=== PATIENT | male | born 1980 | race Caucasian/White ===

== ENCOUNTER 2021-05-15 19:26 | Inpatient (IN) ==
[2021-05-15] MEDS ORDERED: IOPAMIDOL 100 ML BOTTLE IV ONE (19:27)
[2021-05-15] MEDS ORDERED: ONDANSETRON 4 MG/2 ML VIAL IV ONE (19:37)
[2021-05-15] MEDS ORDERED: 0.9 % SODIUM CHLORIDE 1,000 ML IV ONE ×2 (19:37→20:26)
[2021-05-15] MEDS ORDERED: HYDROmorphone 0.5 MG/0.5 ML SYRINGE IV ONE ×2 (19:39→21:23)
[2021-05-15] MEDS ORDERED: cefTRIAXone 1 GM VIAL IV ONE (19:42)
--- NOTE | 2021-05-15 19:42 | Emergency Department Note ---
HPI General Chief complaint: Abdominal Pain Stated complaint: Abdominal Pain Time Seen by Provider: 05/15/21 19:28 Mode of arrival: ambulatory Limitations: no limitations History of Present Illness HPI Narrative: Narrative: Patient is a 40-year-old male who presents by ambulance with accompanied by his sister and mother with a chief complaint of abdominal pain. The family also states that he has a fever. The patient reports he is otherwise healthy and up-to-date on all of his immunizations. The patient also endorses nausea and abdominal pain. The family states that he was seen at [facility] yesterday. Related Data Home Medications Medication Instructions Recorded Confirmed naproxen sodium 220 mg PO PRN PRN 01/23/17 01/26/17 Previous Rx's Medication Instructions Recorded cyclobenzaprine 10 mg PO TID PRN #30 tab 01/23/17 etodolac 400 mg PO BIDP PRN #20 tab 01/23/17 Allergies Allergy/AdvReac Type Severity Reaction Status Date / Time No Known Drug Allergies Allergy Verified 05/15/21 19:28 Review of Systems ROS ROS Narrative: Narrative: All systems ED: reviewed and negative except as stated. [facility] Narrative Patient History Narrative: Narrative: Medical/Surgical/Family History All Active Problems (Updated 05/15/21 @ 23:06 by Christofer Akbar DO) Dental abscess (Acute) Strain of lumbar region (Acute) Acute appendicitis (Acute) Social History Smoking Status: Never smoker Exam Narrative Narrative: Narrative: General Limitations: no limitations General appearance: Present alert Head Head: Present atraumatic and normocephalic Eye Eye: Present normal appearance, PERRL and EOMI ENT ENT: Present normal exam, normal oropharynx and mucous membranes moist Neck Neck: Present normal inspection, full ROM and trachea midline Chest Chest: Present normal inspection and symmetric chest wall rise Respiratory Respiratory: Present normal lung sounds bilaterally Cardiovascular Cardiovascular: Present regular rate and normal rhythm Adbominal Abdominal: Present tenderness, guarding, rebound and heel tap sign Extremities Extremities: Present normal inspection and full ROM; Absent tenderness Back Back: Present normal inspection and full ROM; Absent tenderness Neurological Neurological: Present alert, oriented X3, CN II-XII intact, normal gait, motor sensory deficit and reflexes normal Psychiatric Psychiatric: Present normal affect Skin Skin: Present warm (WNL); Absent rash Course Course Course Narrative: I reviewed the medical records from [facility] yesterday that did show a leukocytosis of 16,000. There is also report that shows a negative CT angiogram of the abdomen and pelvis. Today's work-up is consistent with acute appendicitis. I did speak with the general surgeon Dr. Zaragoza who has graciously agreed to admit this patient. Basic facilitated admission orders were placed. Patient will be kept n.p.o., treated with IV fluids, antiemetics and analgesics as well as IV antibiotics. I had a lengthy discussion with the patient as well as the patient's mother and sister who are all agreeable to admission to the hospital for appendicitis for evaluation by the general surgeon Dr. Zaragoza. Vital Signs Vital signs: Vital Signs Temperature 100.6 F H 05/15/21 19:27 Pulse Rate 110 H 05/15/21 19:27 Respiratory Rate 18 05/15/21 19:27 Blood Pressure 124/78 05/15/21 19:27 Pulse Oximetry (%) 92 05/15/21 19:27 Temperature 100.5 F H 05/15/21 20:16 Pulse Rate 79 05/16/21 00:17 Respiratory Rate 18 05/15/21 19:27 Blood Pressure 101/63 05/16/21 00:17 Pulse Oximetry (%) 94 05/16/21 00:17 [facility] Narrative Medical decision making narrative: Narrative: history and exam are concerning for appendicitis. Work up is consistent with appendicitis. Lab Data Result diagrams: 05/15/21 20:00 05/15/21 20:00 Labs: Lab Results 05/15/21 05/15/21 05/15/21 Range/Units 20:00 20:00 20:00 WBC 11.5 H (4.5-11.0) K/mcL RBC 4.69 (4.63-6.08) M/mcL Hgb 14.1 (13.7-17.5) g/dL Hct 41.8 (40.1-51.0) % POC Hct 42 (41-55) % MCV 89.1 (80.0-100.0) fL MCH 30.1 (26.0-34.0) pg MCHC 33.7 (31.0-36.0) g/dL RDW 12.8 (11.5-14.5) % Plt Count 266 (140-440) K/mcL MPV 9.1 (7.4-10.4) fL Neut % (Auto) 93.4 H (38.0-78.0) % Lymph % (Auto) 4.0 L (15.5-49.0) % Garrard % (Auto) 2.1 (1.0-12.0) % Eos % (Auto) 0.2 (0.0-7.0) % Baso % (Auto) 0.3 (0.0-2.0) % Lymph # (Auto) 0.46 L (1.50-4.80) K/mcL Garrard # (Auto) 0.24 (0.10-0.90) K/mcL Eos # (Auto) 0.02 (0.00-0.70) K/mcL Baso # (Auto) 0.03 (0.00-0.30) K/mcL Absolute Neutrophils 10.74 H (1.80-8.00) K/mcL PT 14.3 (11.9-14.5) sec INR 1.1 (0.9-1.1) VBG Lactic Acid (0.5-2.0) mmol/L POC Sodium 135 (133-145) mEq/L Sodium 128 L (133-145) mmol/L POC Potassium 3.7 (3.3-5.1) mEql/L Potassium 3.6 (3.3-5.1) mmol/L POC Chloride 98 (96-108) mEq/L Chloride 94 L (96-108) mmol/L Carbon Dioxide 22 (22-30) mmol/L POC Total CO2 23 (22-30) mmol/L Anion Gap 12.0 (8.0-16.0) POC BUN 10 (6-20) mg/dL BUN 10 (6-20) mg/dL Creatinine 0.7 (0.7-1.2) mg/dL POC Creatinine 0.7 (0.6-1.2) mg/dL GFR Calculation 118 Glucose 98 (70-105) mg/dL POC Glucose 100 (70-105) mg/dL Calcium 9.0 (8.6-10.4) mg/dL POC WB Ioniz Calcium 1.16 (1.16-1.32) mmEq/L Total Bilirubin 0.6 (0.1-1.0) mg/dL AST 19 (<40) U/L ALT 23 (<40) U/L Alkaline Phosphatase 99 (39-117) U/L Troponin T (<0.03) ng/mL NT-Pro-B Natriuret Pep (<125.0) pg/mL Total Protein 6.5 (5.9-8.4) gm/dL Albumin 3.7 (3.2-5.2) gm/dL Globulin 2.8 (2.2-3.7) gm/dL Albumin/Globulin Ratio 1.3 (1.0-2.3) Amylase 53 (28-100) U/L Lipase 20 (7-60) U/L Ethyl Alcohol (<0.010) gm/dL 05/15/21 05/15/21 05/15/21 Range/Units 20:00 20:00 20:00 WBC (4.5-11.0) K/mcL RBC (4.63-6.08) M/mcL Hgb (13.7-17.5) g/dL Hct (40.1-51.0) % POC Hct (41-55) % MCV (80.0-100.0) fL MCH (26.0-34.0) pg MCHC (31.0-36.0) g/dL RDW (11.5-14.5) % Plt Count (140-440) K/mcL MPV (7.4-10.4) fL Neut % (Auto) (38.0-78.0) % Lymph % (Auto) (15.5-49.0) % Garrard % (Auto) (1.0-12.0) % Eos % (Auto) (0.0-7.0) % Baso % (Auto) (0.0-2.0) % Lymph # (Auto) (1.50-4.80) K/mcL Garrard # (Auto) (0.10-0.90) K/mcL Eos # (Auto) (0.00-0.70) K/mcL Baso # (Auto) (0.00-0.30) K/mcL Absolute Neutrophils (1.80-8.00) K/mcL PT (11.9-14.5) sec INR (0.9-1.1) VBG Lactic Acid < 0.2 L (0.5-2.0) mmol/L POC Sodium (133-145) mEq/L Sodium (133-145) mmol/L POC Potassium (3.3-5.1) mEql/L Potassium (3.3-5.1) mmol/L POC Chloride (96-108) mEq/L Chloride (96-108) mmol/L Carbon Dioxide (22-30) mmol/L POC Total CO2 (22-30) mmol/L Anion Gap (8.0-16.0) POC BUN (6-20) mg/dL BUN (6-20) mg/dL Creatinine (0.7-1.2) mg/dL POC Creatinine (0.6-1.2) mg/dL GFR Calculation Glucose (70-105) mg/dL POC Glucose (70-105) mg/dL Calcium (8.6-10.4) mg/dL POC WB Ioniz Calcium (1.16-1.32) mmEq/L Total Bilirubin (0.1-1.0) mg/dL AST (<40) U/L ALT (<40) U/L Alkaline Phosphatase (39-117) U/L Troponin T < 0.01 (<0.03) ng/mL NT-Pro-B Natriuret Pep 198.2 H (<125.0) pg/mL Total Protein (5.9-8.4) gm/dL Albumin (3.2-5.2) gm/dL Globulin (2.2-3.7) gm/dL Albumin/Globulin Ratio (1.0-2.3) Amylase (28-100) U/L Lipase (7-60) U/L Ethyl Alcohol (<0.010) gm/dL 05/15/21 Range/Units 20:00 WBC (4.5-11.0) K/mcL RBC (4.63-6.08) M/mcL Hgb (13.7-17.5) g/dL Hct (40.1-51.0) % POC Hct (41-55) % MCV (80.0-100.0) fL MCH (26.0-34.0) pg MCHC (31.0-36.0) g/dL RDW (11.5-14.5) % Plt Count (140-440) K/mcL MPV (7.4-10.4) fL Neut % (Auto) (38.0-78.0) % Lymph % (Auto) (15.5-49.0) % Garrard % (Auto) (1.0-12.0) % Eos % (Auto) (0.0-7.0) % Baso % (Auto) (0.0-2.0) % Lymph # (Auto) (1.50-4.80) K/mcL Garrard # (Auto) (0.10-0.90) K/mcL Eos # (Auto) (0.00-0.70) K/mcL Baso # (Auto) (0.00-0.30) K/mcL Absolute Neutrophils (1.80-8.00) K/mcL PT (11.9-14.5) sec INR (0.9-1.1) VBG Lactic Acid (0.5-2.0) mmol/L POC Sodium (133-145) mEq/L Sodium (133-145) mmol/L POC Potassium (3.3-5.1) mEql/L Potassium (3.3-5.1) mmol/L POC Chloride (96-108) mEq/L Chloride (96-108) mmol/L Carbon Dioxide (22-30) mmol/L POC Total CO2 (22-30) mmol/L Anion Gap (8.0-16.0) POC BUN (6-20) mg/dL BUN (6-20) mg/dL Creatinine (0.7-1.2) mg/dL POC Creatinine (0.6-1.2) mg/dL GFR Calculation Glucose (70-105) mg/dL POC Glucose (70-105) mg/dL Calcium (8.6-10.4) mg/dL POC WB Ioniz Calcium (1.16-1.32) mmEq/L Total Bilirubin (0.1-1.0) mg/dL AST (<40) U/L ALT (<40) U/L Alkaline Phosphatase (39-117) U/L Troponin T (<0.03) ng/mL NT-Pro-B Natriuret Pep (<125.0) pg/mL Total Protein (5.9-8.4) gm/dL Albumin (3.2-5.2) gm/dL Globulin (2.2-3.7) gm/dL Albumin/Globulin Ratio (1.0-2.3) Amylase (28-100) U/L Lipase (7-60) U/L Ethyl Alcohol < 0.010 (<0.010) gm/dL ED POC Tests ED POC Tests: GINA - Influenza A Negative GINA - Influenza B Negative GINA - SARS Antigen Negative Discharge Plan Patient/Caregiver Discharge Instructions Pt seen by [employer]IC APPRENTICE/PA only: No Clinical Impression: Acute appendicitis Qualifiers: Acute appendicitis type: unspecified acute appendicitis type Qualified Code(s): K35.80 - Unspecified acute appendicitis Patient Disposition: Xfer As Inpt ([facility]) Condition: Serious Follow up with: No,PCP [Primary Care Provider] - Prescriptions: No Action naproxen sodium 1 TABLET tablet 220 mg PO PRN PRN (Reason: Pain) RF: 0 cyclobenzaprine 10 MG tablet 10 mg PO TID PRN (Reason: Muscle Spasm) Qty: 30 RF: 0 etodolac 400 MG tablet 400 mg PO BIDP PRN (Reason: Pain) Qty: 20 RF: 0 Discharge Location: [facility]
[2021-05-15] MEDS ORDERED: ACETAMINOPHEN 325 MG TABLET PO ONE (19:46)
[2021-05-15 20:28] LABS: POC Blood Urea Nitrogen 10 mg/dL (6-20); POC CO2 23 mmol/L (22-30); POC Calcium, Ionized 1.16 mmEq/L (1.16-1.32); POC Chloride 98 mEq/L (96-108); POC Creatinine 0.7 mg/dL (0.6-1.2); POC Glucose, Random 100 mg/dL (70-105); POC Hematocrit 42 % (41-55); POC Potassium 3.7 mEql/L (3.3-5.1); POC Sodium 135 mEq/L (133-145)
[2021-05-15 20:52] LABS: Basophils # (Auto) 0.03 K/mcL (0.00-0.30); Basophils % (Auto) 0.3 % (0.0-2.0); Eosinophils # (Auto) 0.02 K/mcL (0.00-0.70); Eosinophils % (Auto) 0.2 % (0.0-7.0); Hematocrit 41.8 % (40.1-51.0); Hemoglobin 14.1 g/dL (13.7-17.5); Lymphocytes # (Auto) 0.46 K/mcL (1.50-4.80); Mean Cell Volume 89.1 fL (80.0-100.0); Mean Corpuscular HGB Conc 33.7 g/dL (31.0-36.0); Mean Platelet Volume 9.1 fL (7.4-10.4); Monocytes # (Auto) 0.24 K/mcL (0.10-0.90); Monocytes % (Auto) 2.1 % (1.0-12.0); Neutrophils % (Auto) 93.4 % (38.0-78.0); Platelet Count 266 K/mcL (140-440); RBC 4.69 M/mcL (4.63-6.08); Red Cell Distribution Width 12.8 % (11.5-14.5); WBC 11.5 K/mcL (4.5-11.0)
[2021-05-15 21:09] LABS: INR 1.1 (0.9-1.1); Prothrombin Time 14.3 sec (11.9-14.5)
[2021-05-15 21:17] LABS: ALT/SGPT 23 U/L (<40); AST/SGOT 19 U/L (<40); Albumin 3.7 gm/dL (3.2-5.2); Albumin/Globulin Ratio 1.3 (1.0-2.3); Alkaline Phosphatase 99 U/L (39-117); Amylase 53 U/L (28-100); Bilirubin,Total 0.6 mg/dL (0.1-1.0); Blood Urea Nitrogen 10 mg/dL (6-20); Carbon Dioxide 22 mmol/L (22-30); Chloride 94 mmol/L (96-108); Globulin 2.8 gm/dL (2.2-3.7); Glomerular Filtration Rate 118; Glucose 98 mg/dL (70-105)
[2021-05-15 21:29] LABS: Alcohol, Blood < 10.0 mg/dL; Alcohol,Blood < 0.010 gm/dL (<0.010)
[2021-05-15] MEDS ORDERED: ACETAMINOPHEN 325 MG TABLET PO PRN (22:58)
[2021-05-15] MEDS ORDERED: ONDANSETRON 4 MG/2 ML VIAL IV PRN (22:58)
[2021-05-15] MEDS: PIPERACILLIN SODIUM/TAZOBACTAM 3.375 GM in DEXTROSE 5% IN WATER 50 ML IV SCH (23:55)
[2021-05-16] MEDS: morphine 4 MG/ML VIAL IV PRN ×2 (00:14→03:06)
[2021-05-16] MEDS: 0.9 % SODIUM CHLORIDE 1,000 ML IV SCH ×2 (01:00→08:47)
[2021-05-16 03:05] LABS: Amphetamine Screen,Urine Suspect positive; Barbiturate Screen,Urine None detected; Benzodiazepines Screen,Urine None detected; Cannabinoid Screen,Urine None detected; Cocaine Screen,Urine None detected; Opiate Screen,Urine Suspect Positive; Oxycodone, Urine Screen Suspect Positive; Phencyclidine Screen,Urine None detected
[2021-05-16] MEDS: PIPERACILLIN SODIUM/TAZOBACTAM 3.375 GM in DEXTROSE 5% IN WATER 50 ML IV SCH ×3 (04:54→17:58)
[2021-05-16] MEDS: HYDROmorphone 1 MG/ML SYRINGE IV PRN ×3 (05:52→18:18)
[2021-05-16] MEDS ORDERED: HYDROmorphone 1 MG/ML SYRINGE ONE ×2 (05:55→11:30)
[2021-05-16] MEDS ORDERED: 0.9 % SODIUM CHLORIDE 10 ML SYRINGE IV SCH (06:00)
--- NOTE | 2021-05-16 06:19 | XRay Report ---
INDICATION: FEVER TECHNIQUE: AP portable semiupright chest x-ray COMPARISON: Previous examination dated 05/14/2021 FINDINGS: Lungs:Right lung is negative. No parenchymal infiltrate. Focal left basilar density consistent with volume loss. Pneumonia is possible. Clinical correlation follow-up radiograph is recommended. Heart, vascular:No significant cardiomegaly. Pulmonary vascularity is normal. No pulmonary edema or pulmonary congestion Mediastinum, jose:No mediastinal widening. No hilar mass Pleura:No pleural fluid. No pleural-based mass or calcification Skeletal:Negative. IMPRESSION: 1. Left basilar density consistent with volume loss. Pneumonia is possible 2. Follow-up recommended Interpreted and Authenticated by: Masood Escudero 05/16/21
--- NOTE | 2021-05-16 07:32 | Cat Scan Report ---
INDICATION: abd pain fever COMPARISON: Previous examination dated 05/14/2021 80 mL TECHNIQUE: Axial images were obtained through the abdomen and pelvis. Sagittally and coronally reformatted images. Isovue 370 injected intravenously. FINDINGS: Lung bases:Consolidation in the posterior basilar segment left lower lobe. Mild parenchymal density at the right lung base. Findings may be secondary to a benign atelectasis but pneumonia is possible. Liver:Negative. No focal intrahepatic mass. No focal abnormality. Liver contour is smooth. No evidence for cirrhosis Gallbladder, bilary:No calcified gallstones. No gallbladder wall thickening. No dilated intra or extrahepatic bile ducts. Spleen:No splenomegaly. Normal enhancement of splenic and portal veins. Pancreas:No pancreatic mass. No peripancreatic abnormality Adrenal glands:Negative Kidneys, ureters, bladder:No solid renal mass. No hydronephrosis. No obstructing calculi. There is no hydroureter. No ureteral stone No bladder calculi or detectable mass Gastrointestinal:No detectable colonic mass. There is no diverticulitis. Small bowel is prominent and fluid-filled. This may be secondary to mild ileus. Stomach and duodenum are unremarkable Appendix: The appendix is enlarged. Appendix measures approximately 9 mm in cross-sectional diameter. There is a 6 mm appendicolith. There is periappendiceal inflammatory change and mild fluid within the pelvis. There may be mural discontinuity nonruptured appendicitis is possible. There is no abscess. Vascular:Negative abdominal aorta. Superior mesenteric artery and celiac trunk are normal. Normal opacification of the inferior mesenteric artery Lymphatic:No retroperitoneal or mesenteric adenopathy Mesentery, peritoneum: Mild free pelvic fluid. There is no pneumoperitoneum. No intra-abdominal abscess Reproductive:Prostate is not significantly enlarged Musculoskeletal:No lumbar compression fractures. Sacrum and pelvis are negative. No hip fracture. No abdominal wall or inguinal hernia IMPRESSION: 1. Acute appendicitis. 6 mm appendicolith 2. There is periappendiceal inflammatory change and small amount of free pelvic fluid. Ruptured appendix is suspected 3. Bibasilar pulmonary parenchymal density may be benign volume loss but pneumonia is possible The exam was performed using radiation dose optimization techniques including, but not limited to, automated exposure control, adjustment of the mA and/or kV according to patient size and use of iterative reconstruction technique. Interpreted and Authenticated by: Masood Escudero 05/16/21
[2021-05-16] MEDS ORDERED: DOCUSATE SODIUM 100 MG CAPSULE PO SCH ×2 (09:00→21:00)
--- NOTE | 2021-05-16 10:59 | General Surg History&Physical ---
HPI History of Present Illness Patient information: Note initiated : 05/16/21 at 10:48 am Service Date, if different from initiated Date: [] Patient: Barrington Elizabeth 40 y/o M admitted on 05/16/21 for Abdominal Pain. Chief Complaint: [] Chief complaint: Acute appendicitis History of present illness: Mr. Elizabeth is a 40 year old M admitted with evidence of acute appendicitis. The patient had onset of severe abdominal pain on Monday morning which was 3 days prior to admission. The pain was in the mid abdomen. It was followed by multiple episodes of nausea with vomiting. He was seen at [facility] emergency room and told that he had acute gastritis. He states that the CT was done at that time. His symptoms became much worse on yesterday and he was seen in our emergency room last evening with findings of elevated temperature with mild leukocytosis. CT shows evidence of a inflamed appendix with fecalith and periappendiceal tissue edema compatible with acute. Patient continues to have significant right lower quadrant and hypogastric pain. He was admitted last evening and is counseled for laparoscopic appendectomy. Review of Systems All systems: reviewed and no additional remarkable complaints except as stated (No other complaints except for present illness) PFSH PFSH All Active Problems (Updated 05/16/21 @ 10:58 by Reg Zaragoza MD) Methamphetamine use (Acute) Bacteremia due to Gram-negative bacteria (Acute) Dental abscess (Acute) Strain of lumbar region (Acute) Acute appendicitis (Acute) Hyponatremia (Acute) Surgical History (Updated 05/16/21 @ 10:51 by Reg Zaragoza MD) H/O left inguinal hernia repair Social History (Updated 05/16/21 @ 10:58 by Reg Zaragoza MD) smoking status: Current every day smoker tobacco type: cigarettes per day: 20 quit status: not considering quitting alcohol intake frequency: does not drink substance use type: amphetamines MEDS/ALLERGIES Home Medications and Allergies Home Medications Medication Instructions Recorded Confirmed Type cyclobenzaprine 10 mg PO TID PRN #30 tab 01/23/17 05/16/21 Rx etodolac 400 mg PO BIDP PRN #20 tab 01/23/17 05/16/21 Rx naproxen sodium 220 mg PO PRN PRN 01/23/17 05/16/21 History Allergies Allergy/AdvReac Type Severity Reaction Status Date / Time No Known Drug Allergies Allergy Verified 05/15/21 19:28 Physical Examination Vital Signs Vital signs: Temp Pulse Resp BP Pulse Ox 99.3 F H 88 15 109/63 90 05/16/21 06:35 05/16/21 06:35 05/16/21 06:35 05/16/21 06:35 05/16/21 06:35 General physical appearance General physical exam: well developed, well nourished, moderate distress, moderate pain and obese Eyes Eye exam: PERRL and normal ocular movement ENT ENT exam: normal pinna, normal nares, normal mucosa and no congestion Head Head exam IM: Present atraumatic, normal inspection and normocephalic Neck Neck exam: no masses, no bruits, trachea midline, no lymphadenopathy and no venous distension Cardiovascular Cardiovascular exam IM: Present normal rate and rhythm, RRR, +S1 and +S2; Absent gallop and JVD Respiratory Respiratory exam: normal expansion, normal respiratory effort and clear to auscultation Abdomen Abdomen: Present tender (Tenderness with guarding and rebound and right lower quadrant and hypogastrium) and bowel sounds Integumentary Integumentary: Present no rash, no growths and no abnormal pigmentation Neurologic Neurologic: Present normal coordination and normal sensation Musculoskeletal Musculoskeletal: Present normal gait and normal posture Psychiatric Psychiatric: Present oriented to time, oriented to person, oriented to place, speech is normal and memory intact Results Labs Result diagrams: 05/15/21 20:00 05/15/21 20:00 Labs: Abnormal lab results 05/15/21 05/15/21 05/15/21 Range/Units 01:50 20:00 20:00 WBC 11.5 H (4.5-11.0) K/mcL Neut % (Auto) 93.4 H (38.0-78.0) % Lymph % (Auto) 4.0 L (15.5-49.0) % Lymph # (Auto) 0.46 L (1.50-4.80) K/mcL Absolute Neutrophils 10.74 H (1.80-8.00) K/mcL VBG Lactic Acid (0.5-2.0) mmol/L Sodium 128 L (133-145) mmol/L Chloride 94 L (96-108) mmol/L NT-Pro-B Natriuret Pep (<125.0) pg/mL Urine Opiates Screen Suspect positive A Ur Oxycodone Screen Suspect positive A Ur Amphetamines Screen Suspect positive A 05/15/21 05/15/21 Range/Units 20:00 20:00 WBC (4.5-11.0) K/mcL Neut % (Auto) (38.0-78.0) % Lymph % (Auto) (15.5-49.0) % Lymph # (Auto) (1.50-4.80) K/mcL Absolute Neutrophils (1.80-8.00) K/mcL VBG Lactic Acid < 0.2 L (0.5-2.0) mmol/L Sodium (133-145) mmol/L Chloride (96-108) mmol/L NT-Pro-B Natriuret Pep 198.2 H (<125.0) pg/mL Urine Opiates Screen Ur Oxycodone Screen Ur Amphetamines Screen Diabetes panel 05/15/21 Range/Units 20:00 Sodium 128 L (133-145) mmol/L Potassium 3.6 (3.3-5.1) mmol/L Chloride 94 L (96-108) mmol/L Carbon Dioxide 22 (22-30) mmol/L BUN 10 (6-20) mg/dL Creatinine 0.7 (0.7-1.2) mg/dL Glucose 98 (70-105) mg/dL Calcium 9.0 (8.6-10.4) mg/dL AST 19 (<40) U/L ALT 23 (<40) U/L Alkaline Phosphatase 99 (39-117) U/L Total Protein 6.5 (5.9-8.4) gm/dL Albumin 3.7 (3.2-5.2) gm/dL Calcium panel 05/15/21 Range/Units 20:00 Calcium 9.0 (8.6-10.4) mg/dL Albumin 3.7 (3.2-5.2) gm/dL Pituitary panel 05/15/21 Range/Units 20:00 Sodium 128 L (133-145) mmol/L Potassium 3.6 (3.3-5.1) mmol/L Chloride 94 L (96-108) mmol/L Carbon Dioxide 22 (22-30) mmol/L BUN 10 (6-20) mg/dL Creatinine 0.7 (0.7-1.2) mg/dL Glucose 98 (70-105) mg/dL Calcium 9.0 (8.6-10.4) mg/dL Adrenal panel 05/15/21 Range/Units 20:00 Sodium 128 L (133-145) mmol/L Potassium 3.6 (3.3-5.1) mmol/L Chloride 94 L (96-108) mmol/L Carbon Dioxide 22 (22-30) mmol/L BUN 10 (6-20) mg/dL Creatinine 0.7 (0.7-1.2) mg/dL Glucose 98 (70-105) mg/dL Calcium 9.0 (8.6-10.4) mg/dL Total Bilirubin 0.6 (0.1-1.0) mg/dL AST 19 (<40) U/L ALT 23 (<40) U/L Alkaline Phosphatase 99 (39-117) U/L Total Protein 6.5 (5.9-8.4) gm/dL Albumin 3.7 (3.2-5.2) gm/dL All other labs normal. A/P Assessment and plan (1) Acute appendicitis: Status: Acute Qualifiers: Acute appendicitis type: unspecified acute appendicitis type Qualified Code(s): K35.80 - Unspecified acute appendicitis (2) Bacteremia due to Gram-negative bacteria: Status: Acute (3) Methamphetamine use: Status: Acute Narrative A/P Narrative: Patient is counseled for laparoscopic appendectomy. He has been on IV antibiotics. Surgery will be performed later this morning Time Spent With Patient Time: Total time spent is greater than 50% in coordination of care (as documented) at patient's floor/unit and/or counseling patient:
[2021-05-16] MEDS ORDERED: LACTATED RINGERS 250 ML IV PRN (11:19)
[2021-05-16] MEDS ORDERED: MEPERIDINE 50 MG/ML VIAL IM PRN (11:19)
[2021-05-16] MEDS ORDERED: METHOCARBAMOL 1,000 MG/10 ML VIAL IV PRN (11:19)
[2021-05-16] MEDS ORDERED: MEPERIDINE 25 MG/ML VIAL IV PRN (11:19)
[2021-05-16] MEDS ORDERED: NALOXONE HCL 0.4 MG/ML VIAL IV PRN (11:19)
[2021-05-16] MEDS ORDERED: LABETALOL 5 MG/ML ML IV PRN (11:19)
[2021-05-16] MEDS ORDERED: HYDROmorphone 0.5 MG/0.5 ML SYRINGE IV PRN (11:19)
[2021-05-16] MEDS ORDERED: PROMETHAZINE 25 MG/ML VIAL IM PRN (11:19)
[2021-05-16] MEDS ORDERED: BENZOCAINE/MENTHOL 1 LOZENGE PO PRN (11:19)
[2021-05-16] MEDS ORDERED: ONDANSETRON 4 MG/2 ML VIAL IV PRN ×3 (11:19→13:45)
[2021-05-16] MEDS ORDERED: ACETAMINOPHEN 1,000 MG/100 ML BAG IV ONE (11:19)
[2021-05-16] MEDS ORDERED: IPRATROPIUM/ALBUTEROL 3 ML AMPUL.NEB NEB PRN (11:19)
[2021-05-16] MEDS ORDERED: FLUMAZENIL 0.1 MG/ML ML IV PRN (11:19)
[2021-05-16] MEDS ORDERED: fentaNYL 100 MCG/2 ML VIAL IV PRN (11:19)
[2021-05-16] MEDS ORDERED: METOPROLOL TARTRATE 5 MG/5 ML VIAL IV PRN (11:19)
[2021-05-16] MEDS ORDERED: MIDAZOLAM 2 MG/2 ML VIAL ONE (11:30)
[2021-05-16] MEDS ORDERED: KETAMINE 50 MG/ML Syringe (ANEST) IV ONE (11:30)
[2021-05-16] MEDS ORDERED: ESMOLOL 100 MG/10 ML VIAL IV ONE (11:30)
[2021-05-16] MEDS ORDERED: GLYCOPYRROLATE 0.2 MG/ML VIAL IV ONE (11:30)
[2021-05-16] MEDS ORDERED: LIDOCAINE HCL/PF 100 MG/5 ML SYRINGE IV ONE (11:30)
[2021-05-16] MEDS ORDERED: ROCURONIUM 10 MG/ML ML IV ONE (11:30)
[2021-05-16] MEDS ORDERED: ONDANSETRON 4 MG/2 ML VIAL ONE (11:30)
[2021-05-16] MEDS ORDERED: LACTATED RINGERS 1,000 ML IV SCH (11:30)
[2021-05-16] MEDS ORDERED: SUGAMMADEX SODIUM 200 MG/2 ML VIAL IV ONE (11:30)
[2021-05-16] MEDS ORDERED: KETOROLAC 15 MG/ML VIAL ONE (11:30)
[2021-05-16] MEDS ORDERED: SUCCINYLCHOLINE 20 MG/ML ML IV ONE (11:30)
[2021-05-16] MEDS ORDERED: PHENYLephrine 1 MG/10 ML SYRINGE (ANEST) ONE (11:30)
[2021-05-16] MEDS ORDERED: MAGNESIUM SULFATE 2 GM/50 ML BAG IV ONE (11:30)
[2021-05-16] MEDS ORDERED: fentaNYL 250 MCG/5 ML VIAL IV ONE (11:30)
[2021-05-16] MEDS ORDERED: DEXAMETHASONE 10 MG/ML VIAL ONE (11:30)
[2021-05-16] MEDS ORDERED: PROPOFOL 200 MG/20 ML VIAL IV ONE (11:30)
--- NOTE | 2021-05-16 12:41 | Brief Operative Note ---
Brief Operative Note Date of procedure: 05/16/21 Pre-op diagnosis: acute cholecystitis Post-op diagnosis: other (acute gangrenous cholecystitis) Procedure: laparoscopic appendectomy Grafts/Implants: No (sam drain #10) Anesthesia: GETA Findings: acute severe necrotizing appendicitis Complications: none Surgeon: Reg Zaragoza Estimated blood loss (cc): 10 Specimens Removed/Pathology: other (appendix) Condition: stable Disposition: PACU
[2021-05-16] MEDS ORDERED: IOPAMIDOL 100 ML BOTTLE IV ONE (13:45)
[2021-05-16] MEDS ORDERED: ACETAMINOPHEN 325 MG TABLET PO PRN (13:45)
[2021-05-16] MEDS: 0.9 % SODIUM CHLORIDE 10 ML SYRINGE IV SCH ×2 (14:00→22:00)
[2021-05-16] MEDS ORDERED: SENNOSIDES 1 TABLET PO SCH (21:00)
[2021-05-16] MEDS: DOCUSATE SODIUM 100 MG CAPSULE PO SCH (21:05)
[2021-05-16] MEDS: SENNOSIDES 1 TABLET PO SCH (21:05)
[2021-05-17] MEDS: HYDROmorphone 1 MG/ML SYRINGE IV PRN ×6 (00:49→22:35)
[2021-05-17] MEDS: PIPERACILLIN SODIUM/TAZOBACTAM 3.375 GM in DEXTROSE 5% IN WATER 50 ML IV SCH ×4 (00:57→17:02)
[2021-05-17] MEDS: 0.9 % SODIUM CHLORIDE 10 ML SYRINGE IV SCH ×3 (06:05→20:18)
[2021-05-17 06:47] LABS: Basophils # (Auto) 0.02 K/mcL (0.00-0.30); Basophils % (Auto) 0.1 % (0.0-2.0); Eosinophils # (Auto) 0.01 K/mcL (0.00-0.70); Eosinophils % (Auto) 0.1 % (0.0-7.0); Hematocrit 36.3 % (40.1-51.0); Hemoglobin 11.8 g/dL (13.7-17.5); Lymphocytes # (Auto) 0.81 K/mcL (1.50-4.80); Lymphocytes % (Auto) 5.3 % (15.5-49.0); Mean Cell Volume 91.2 fL (80.0-100.0); Mean Corpuscular HGB Conc 32.5 g/dL (31.0-36.0); Mean Platelet Volume 8.8 fL (7.4-10.4); Monocytes # (Auto) 1.81 K/mcL (0.10-0.90); Monocytes % (Auto) 11.8 % (1.0-12.0); Neutrophils % (Auto) 82.7 % (38.0-78.0); Platelet Count 169 K/mcL (140-440); RBC 3.98 M/mcL (4.63-6.08); Red Cell Distribution Width 12.9 % (11.5-14.5); WBC 15.4 K/mcL (4.5-11.0)
[2021-05-17 07:15] LABS: ALT/SGPT 14 U/L (<40); AST/SGOT 18 U/L (<40); Albumin 2.7 gm/dL (3.2-5.2); Albumin/Globulin Ratio 0.9 (1.0-2.3); Alkaline Phosphatase 87 U/L (39-117); Bilirubin,Direct < 0.2 mg/dL (0-0.3); Bilirubin,Total 0.5 mg/dL (0.1-1.0); Blood Urea Nitrogen 13 mg/dL (6-20); Calcium 8.6 mg/dL (8.6-10.4); Carbon Dioxide 23 mmol/L (22-30); Chloride 101 mmol/L (96-108); Globulin 3.1 gm/dL (2.2-3.7); Glomerular Filtration Rate 118; Glucose 127 mg/dL (70-105); Lactate Dehydrogenase 260 U/L (135-225); Phosphorous 2.5 mg/dL (2.5-4.5); Triglycerides 74 mg/dL (<150); Uric Acid 3.9 mg/dL (2.5-8.0)
[2021-05-17] MEDS: PANTOPRAZOLE 40 MG TABLET PO SCH (07:38)
[2021-05-17] MEDS: oxyCODONE HCL 5 MG TABLET PO PRN ×4 (07:38→20:23)
[2021-05-17] MEDS: DOCUSATE SODIUM 100 MG CAPSULE PO SCH ×2 (07:40→20:24)
--- NOTE | 2021-05-17 13:29 | General Surgery Progress Note ---
SUBJECTIVE Subjective Patient information: Note initiated : 05/17/21 at 1:28 pm Service Date, if different from initiated Date: [] Patient: Barrington Elizabeth 40 y/o M admitted on 05/16/21 for Abdominal Pain. Chief Complaint: [] Principal diagnosis: Acute necrotizing appendicitis Interval history: Patient is clinically stable. He feels weak but he has not been febrile. He has had flatus but no bowel movement. White blood count 15.4, hemoglobin 11.8, hematocrit 36.3, potassium 4.2, BUN 13, creatinine 0.7. Blood cultures are growing out E. coli. Constitutional Vitals: Vital Signs Temp Pulse Resp BP Pulse Ox 98.8 F 75 20 116/74 92 05/17/21 12:00 05/17/21 12:00 05/17/21 12:00 05/17/21 12:00 05/17/21 12:00 Period Temp Pulse Resp BP Sys/Ramirez Pulse Ox Last 24 Hr 97.2 F-99.2 F 73-89 12-20 94-118/59-74 89-100 Intake and Output 05/16/21 05/17/21 05/17/21 21:59 05:59 13:59 Intake Total 991 577 2659 Output Total 350 625 545 Balance -60 -95 1655 Intake & Output: Intake & Output 05/16/21 05/17/21 05/17/21 21:59 05:59 13:59 Intake Total 179 892 1432 Output Total 350 625 545 Balance -60 -95 1655 Intake: IV 50 50 1100 Sodium Chloride 0.9% 1,000 ml @ 1000 100 mls/hr IV .Q10H PRISCA Rx#: [id number] Zosyn 3.375 gm In Dextrose 5% 50 50 100 in Water 50 ml @ 100 mls/hr IV Q6H PRISCA Rx#:[id number] Oral [id number] Output: Drainage 30 Lower Abdomen 30 Drainage 320 100 95 Lower Abdomen 320 100 95 Void Amount 525 450 Other: Meal Dinner Breakfast Percent of Meal Consumed 100% 100% Feeding Ability Assist with Tray Set Up Urine Appearance Clear Clear Urine Color Dark Yellow Light Yvonne Urine Odor Strong ENT ENT exam: Present mucous membranes moist, normal oropharynx and TM's normal bilaterally Neck Neck exam: Present full ROM; Absent lymphadenopathy and tenderness Respiratory Respiratory exam: Present normal respiratory exam and CTAB; Absent rales Cardiovascular Cardiovascular exam: Present normal rate and rhythm, RRR, +S1 and +S2; Absent JVD GI/Abdominal GI/Abdominal exam: Present diminished bowel sounds and distended (Mild distention) Additional comments: Drain has serosanguineous fluid Extremities Exam Extremities exam: Present full ROM, normal inspection and neurovascular intact Neurological Exam Neurological exam: Present alert, normal gait, oriented X3 and reflexes normal Psychiatric Psychiatric exam: Present normal affect and normal mood A/P Assessment and plan (1) Acute appendicitis with localized peritonitis and gangrene, without perfor ation: Status: Acute (2) Bacteremia due to Gram-negative bacteria: Status: Acute (3) Methamphetamine use: Status: Acute Narrative A/P Narrative: Continue antibiotics and advance to full liquid diet Time Spent With Patient Time: Total time spent is greater than 50% in coordination of care (as documented) at patient's floor/unit and/or counseling patient:
[2021-05-17] MEDS: SENNOSIDES 1 TABLET PO SCH (20:22)
[2021-05-18] MEDS: PIPERACILLIN SODIUM/TAZOBACTAM 3.375 GM in DEXTROSE 5% IN WATER 50 ML IV SCH ×3 (00:54→12:54)
[2021-05-18] MEDS: oxyCODONE HCL 5 MG TABLET PO PRN ×5 (03:17→23:22)
[2021-05-18] MEDS: HYDROmorphone 1 MG/ML SYRINGE IV PRN ×5 (05:29→20:46)
[2021-05-18] MEDS: 0.9 % SODIUM CHLORIDE 10 ML SYRINGE IV SCH ×3 (05:31→21:53)
[2021-05-18] MEDS: PANTOPRAZOLE 40 MG TABLET PO SCH (08:37)
[2021-05-18] MEDS: DOCUSATE SODIUM 100 MG CAPSULE PO SCH ×2 (08:37→21:50)
--- NOTE | 2021-05-18 11:17 | Surgical Pathology Report ---
Histology Microscopic Diagnosis Specimen A- APPENDIX, APPENDECTOMY: --- ACUTE NECROTIZING APPENDICITIS. (RLF) Gross Description Received in formalin labeled appendix, is a oconnor-espana appendix measuring 8 cm in length by up to 1.2 cm in diameter, with an additional 3.5 cm portion of oconnor-espana tissue. The resection margin is stapled; this is inked black. There is oconnor-espana exudate on the serosa. The wall ranges in thickness from less than 0.1 to 0.4 cm. There is espana-brown fecal material. Grossly there are no areas of perforation identified. [employer] sections submitted in one cassette. (SCB:sln) Electronically Signed Kary Woodruff MD, FCAP Electronically Signed 05/18/2021 11:15
[2021-05-18 14:05] LABS: Basophils # (Auto) 0.03 K/mcL (0.00-0.30); Basophils % (Auto) 0.2 % (0.0-2.0); Eosinophils # (Auto) 0.19 K/mcL (0.00-0.70); Eosinophils % (Auto) 1.4 % (0.0-7.0); Hematocrit 38.1 % (40.1-51.0); Hemoglobin 12.9 g/dL (13.7-17.5); Lymphocytes # (Auto) 1.04 K/mcL (1.50-4.80); Lymphocytes % (Auto) 7.7 % (15.5-49.0); Mean Cell Volume 88.4 fL (80.0-100.0); Mean Corpuscular HGB Conc 33.9 g/dL (31.0-36.0); Mean Platelet Volume 9.2 fL (7.4-10.4); Monocytes # (Auto) 1.86 K/mcL (0.10-0.90); Monocytes % (Auto) 13.7 % (1.0-12.0); Platelet Count 199 K/mcL (140-440); RBC 4.31 M/mcL (4.63-6.08); WBC 13.6 K/mcL (4.5-11.0)
[2021-05-18] MEDS ORDERED: HYDROmorphone 0.5 MG/0.5 ML SYRINGE IV PRN (14:30)
--- NOTE | 2021-05-18 14:56 | General Surgery Progress Note ---
SUBJECTIVE Subjective Patient information: Note initiated : 05/18/21 at 2:53 pm Service Date, if different from initiated Date: [] Patient: Barrington Elizabeth 40 y/o M admitted on 05/16/21 for Abdominal Pain. Chief Complaint: [] Principal diagnosis: Acute necrotizing appendicitis Interval history: Patient is stable except for incisional pain. He denies nausea no vomiting. He has had some flatus but no bowel movement so far. White blood count is 13.6. Drainage is primarily serous Constitutional Vitals: Vital Signs Temp Pulse Resp BP Pulse Ox 98.4 F 88 22 126/85 90 05/18/21 12:00 05/18/21 12:00 05/18/21 12:00 05/18/21 12:00 05/18/21 12:00 Period Temp Pulse Resp BP Sys/Ramirez Pulse Ox Last 24 Hr 97.5 F-99.4 F 79-88 12-22 104-134/70-85 90-95 Intake and Output 05/18/21 05/18/21 05/18/21 05:59 13:59 21:59 Intake Total 50 100 Output Total 505 575 Balance -455 -475 Weight 276 lb 11.2 oz Patient Weight 05/19/21 05:59 Weight 276 lb 11.2 oz Intake & Output: Intake & Output 05/18/21 05/18/21 05/18/21 05:59 13:59 21:59 Intake Total 50 100 Output Total 505 575 Balance -455 -475 Weight 276 lb 11.2 oz Intake: IV 50 100 Zosyn 3.375 gm In Dextrose 5% 50 100 in Water 50 ml @ 100 mls/hr IV Q6H [facility] Rx#:[id number] Oral 0 Output: Drainage 160 Lower Abdomen 160 Drainage 205 140 Lower Abdomen 205 140 Void Amount 275 Urine/Stool Mix 300 Other: Stool Color Brown Stool Consistency Liquid Watery ENT ENT exam: Present mucous membranes moist, normal oropharynx and TM's normal bilaterally Neck Neck exam: Present full ROM; Absent lymphadenopathy and tenderness Respiratory Respiratory exam: Present normal respiratory exam and CTAB; Absent rales Cardiovascular Cardiovascular exam: Present normal rate and rhythm, RRR, +S1 and +S2; Absent JVD GI/Abdominal GI/Abdominal exam: Present diminished bowel sounds and distended (Mild distention) Additional comments: Drain has serosanguineous fluid Extremities Exam Extremities exam: Present full ROM, normal inspection and neurovascular intact Neurological Exam Neurological exam: Present alert, normal gait, oriented X3 and reflexes normal Psychiatric Psychiatric exam: Present normal affect and normal mood A/P Assessment and plan (1) Acute appendicitis with localized peritonitis and gangrene, without perforation: Status: Acute (2) Bacteremia due to Gram-negative bacteria: Status: Acute (3) Methamphetamine use: Status: Acute Narrative A/P Narrative: Continue on antibiotic therapy Delay advancing diet Time Spent With Patient Time: Total time spent is greater than 50% in coordination of care (as documented) at patient's floor/unit and/or counseling patient:
[2021-05-18] MEDS: CIPROFLOXACIN 400 MG/200 ML BAG IV SCH ×2 (15:37→23:39)
[2021-05-18] MEDS: SENNOSIDES 1 TABLET PO SCH (21:50)
[2021-05-19] MEDS: HYDROmorphone 1 MG/ML SYRINGE IV PRN ×6 (00:15→15:34)
[2021-05-19] MEDS: oxyCODONE HCL 5 MG TABLET PO PRN ×3 (04:44→14:09)
[2021-05-19] MEDS: 0.9 % SODIUM CHLORIDE 10 ML SYRINGE IV SCH ×2 (04:44→14:09)
[2021-05-19] MEDS: PANTOPRAZOLE 40 MG TABLET PO SCH (06:53)
[2021-05-19 07:13] LABS: Basophils # (Auto) 0.07 K/mcL (0.00-0.30); Basophils % (Auto) 0.5 % (0.0-2.0); Eosinophils # (Auto) 0.25 K/mcL (0.00-0.70); Eosinophils % (Auto) 1.7 % (0.0-7.0); Hematocrit 36.6 % (40.1-51.0); Hemoglobin 12.1 g/dL (13.7-17.5); Lymphocytes # (Auto) 1.47 K/mcL (1.50-4.80); Lymphocytes % (Auto) 9.9 % (15.5-49.0); Mean Cell Volume 88.6 fL (80.0-100.0); Mean Corpuscular HGB Conc 33.1 g/dL (31.0-36.0); Mean Platelet Volume 9.2 fL (7.4-10.4); Monocytes # (Auto) 2.17 K/mcL (0.10-0.90); Monocytes % (Auto) 14.7 % (1.0-12.0); Neutrophils % (Auto) 73.2 % (38.0-78.0); Platelet Count 209 K/mcL (140-440); RBC 4.13 M/mcL (4.63-6.08); Red Cell Distribution Width 12.9 % (11.5-14.5); WBC 14.8 K/mcL (4.5-11.0)
[2021-05-19] MEDS: DOCUSATE SODIUM 100 MG CAPSULE PO SCH (08:22)
[2021-05-19] MEDS: CIPROFLOXACIN 400 MG/200 ML BAG IV SCH (09:47)
--- NOTE | 2021-05-19 14:58 | Operative Note ---
DATE OF OPERATION: 05/16/2021 PREOPERATIVE DIAGNOSIS: Acute appendicitis. POSTOPERATIVE DIAGNOSIS: Acute gangrenous appendicitis. PROCEDURE PERFORMED: Laparoscopic appendectomy. SURGEON: Reg Zaragoza M.D. FINDINGS: Acute, severe, necrotizing appendicitis. DESCRIPTION OF PROCEDURE: Under general anesthesia, the patient's abdomen was prepped and draped in a sterile field. Timeout procedure was carried out as per protocol. A supraumbilical midline incision was made and Veress needle was inserted. The abdomen was insufflated with 3 liters of CO2. A 12 mm port was placed. Laparoscope was placed. Under videoscopic guidance, a 5 mm port was placed in the suprapubic midline and a 12 mm port in the left lower quadrant. The patient was placed in deep Trendelenburg position and rotated to the left. The appendix was found at the base of the cecum. It appeared to be necrotizing throughout except for the proximal 2 cm. A window was made in the mesoappendix at the base, and the base was transected through viable tissue using the Endo MASOUD stapler. The mesoappendix was dissected and was transected using the Endo MASOUD stapler. The appendix was placed in an Endopouch and retrieved. Irrigation was carried out. There was no significant bleeding. A #10 Rhett drain was placed and brought out through the suprapubic midline incision. CO2 was allowed to escape from the abdomen and the ports were removed. The fascia at the umbilicus was closed with interrupted 0 Vicryl. The drain was secured with 2-0 Prolene. Skin incisions were closed with david. The patient tolerated the procedure well. He was awakened, transferred to a bed, and taken to the postanesthetic care unit in satisfactory condition. LCS:alana Job ID: [id number] Doc ID: [id number] Reg Zaragoza M.D.
--- NOTE | 2021-05-19 15:43 | Discharge Summary ---
Discharge Provider Provider Patient information: Note initiated : 05/19/21 at 3:39 pm Service Date, if different from initiated Date: [] Patient: Barrington Elizabeth 40 y/o M admitted on 05/16/21 for Abdominal Pain. Chief Complaint: [] Date of admission: 05/16/21 00:30 Discharge date: 05/19/21 Primary care physician: PCP No Admitting clinician: Reg Zaragoza Attending physician on admission: Reg Zaragoza Consults: 05/15/21 Consult to Physician [CONS] Stat Comment: Consulting Provider: Reg Zaragoza Reason For Exam: Physician to Consult Attending physician on discharge: Reg Zaragoza Discharging clinician: Reg Zaragoza COURSE Hospital Course Hospital course: 40 y.o. male with 3 day h/o abdominal pain ,nausea and vomiting. C,T, CONFIRMS acute appendicitis. he also had G- bacteremia with E. COLI.He had appendectomy and has gradually improved.he is stable and will be discharged on cipro and flagyl. Discharge diagnosis: acute necrotizing appendicitis Secondary discharge diagnosis: methamphetamine use gram negative bacteremia Reason for admission: acute appendicitis Procedures: laparoscopic appendectomy Pertinent studies/significant findings: ct of abdomen and pelvis Complications: none Time Spent with Patient Time attestation: Total time spent providing and/or coordinating discharge services: Physical Examination Vital Signs Vital signs: Temp Pulse Resp BP Pulse Ox 98.4 F 74 12 124/80 93 05/19/21 12:00 05/19/21 12:00 05/19/21 12:00 05/19/21 12:00 05/19/21 12:00 ENT ENT exam: normal pinna, normal nares, normal mucosa and no congestion Head Head exam IM: Present atraumatic, normal inspection and normocephalic Neck Neck exam: no masses, no bruits, trachea midline, no lymphadenopathy and no venous distension Cardiovascular Cardiovascular exam IM: Present normal rate and rhythm, RRR, +S1 and +S2; Absent gallop and JVD Respiratory Respiratory exam: normal expansion, normal respiratory effort and clear to aus cultation Abdomen Abdomen: Present tender (Tenderness with guarding and rebound and right lower quadrant and hypogastrium) and bowel sounds Integumentary Integumentary: Present no rash, no growths and no abnormal pigmentation Neurologic Neurologic: Present normal coordination and normal sensation Musculoskeletal Musculoskeletal: Present normal gait and normal posture Psychiatric Psychiatric: Present oriented to time, oriented to person, oriented to place, speech is normal and memory intact Discharge Plan Patient/Caregiver Discharge Instructions Activity: increase activity as tolerated Diet: Regular Diet Instructions: Laparoscopic Appendectomy (DC) Prescriptions: New ciprofloxacin HCl [ciprofloxacin HCl] 500 MG tablet 500 mg PO BID Qty: 20 RF: 0 oxycodone-acetaminophen [Endocet] 10-325 mg Tablet 1 tab PO Q4H PRN (Reason: Pain) Qty: 40 RF: 0 metronidazole [Flagyl] 375 mg capsule 375 mg PO BID Qty: 20 RF: 0 Continued cyclobenzaprine 10 MG tablet 10 mg PO TID PRN (Reason: Muscle Spasm) Qty: 30 RF: 0 Discontinued naproxen sodium 1 TABLET tablet 220 mg PO PRN PRN (Reason: Pain) RF: 0 etodolac 400 MG tablet 400 mg PO BIDP PRN (Reason: Pain) Qty: 20 RF: 0 Follow Up Plan Follow up with: Reg Zaragoza MD [Physician] - 06/02/21 9:45 am Patient Disposition: Home, Self-Care Prognosis: Good Rehab Potential: Good I certify that the patient requires SNF services: No Overall status at discharge: patient is progressing back to baseline Discharge Orders: Discharge Order (Routine); Ordered 05/19/21 Ordered By: Reg Zaragoza Pending Pending Pending: Resuscitation Status Resuscitate (Full Code) Diet GI Soft/Transitional Start MonMay 19 105 Docusate Sodium (Docusate Sodium 100 Mg Capsule) 100 mg PO BID [facility] Last Admin: 05/19/21 08:22 Dose: 100 mg Documented by: Admin: 05/18/21 21:50 Dose: 100 mg Documented by: MARIO ALBERTO Admin: 05/18/21 08:37 Dose: 100 mg Documented by: ROSE MARY Admin: 05/17/21 20:24 Dose: 100 mg Documented by: MARIO ALBERTO Admin: 05/17/21 07:40 Dose: 100 mg Documented by: Admin: 05/16/21 21:05 Dose: 100 mg Documented by: MARIO ALBERTO Hydromorphone HCl (Hydromorphone 1 Mg/Ml Syringe) 1 mg IV Q2HP PRN; Protocol PRN Reason: Per Pain Protocol Last Admin: 05/19/21 15:34 Dose: 1 mg Documented by: Admin: 05/19/21 12:03 Dose: 1 mg Documented by: Admin: 05/19/21 09:48 Dose: 1 mg Documented by: Admin: 05/19/21 06:53 Dose: 1 mg Documented by: Admin: 05/19/21 02:19 Dose: 1 mg Documented by: MARIO ALBERTO Admin: 05/19/21 00:15 Dose: 1 mg Documented by: Admin: 05/18/21 20:46 Dose: 1 mg Documented by: Admin: 05/18/21 15:37 Dose: 1 mg Documented by: Admin: 05/18/21 12:53 Dose: 1 mg Documented by: Admin: 05/18/21 08:45 Dose: 1 mg Documented by: ROSE MARY Admin: 05/18/21 05:29 Dose: 1 mg Documented by: Admin: 05/17/21 22:35 Dose: 1 mg Documented by: MARIO ALBERTO Admin: 05/17/21 18:33 Dose: 0.5 mg Documented by: Admin: 05/17/21 10:27 Dose: 0.5 mg Documented by: Admin: 05/17/21 08:26 Dose: 1 mg Documented by: Admin: 05/17/21 06:07 Dose: 1 mg Documented by: MARIO ALBERTO Admin: 05/17/21 00:49 Dose: 1 mg Documented by: MARIO ALBERTO Admin: 05/16/21 18:18 Dose: 0.5 mg Documented by: BARBARA Ciprofloxacin (Cipro) 400 mg in 200 mls @ 200 mls/hr IV Q12H PRISCA; Protocol Last Infusion: 05/19/21 10:50 Dose: 0 mls/hr Documented by: Admin: 05/19/21 09:47 Dose: 200 mls/hr Documented by: Infusion: 05/19/21 00:40 Dose: 0 mls/hr Documented by: MARIO ALBERTO Admin: 05/18/21 23:39 Dose: 200 mls/hr Documented by: MARIO ALBERTO Infusion: 05/18/21 17:47 Dose: 200 mls/hr Documented by: Admin: 05/18/21 15:37 Dose: 200 mls/hr Documented by: SANTI Oxycodone HCl (Oxycodone Hcl 5 Mg Tablet) 10 mg PO Q4HP PRN; Protocol PRN Reason: Per Pain Protocol Last Admin: 05/19/21 14:09 Dose: 10 mg Documented by: Admin: 05/19/21 08:22 Dose: 10 mg Documented by: Admin: 05/19/21 04:44 Dose: 10 mg Documented by: MARIO ALBERTO Admin: 05/18/21 23:22 Dose: 10 mg Documented by: MARIO ALBERTO Admin: 05/18/21 18:33 Dose: 10 mg Documented by: ROSE MARY Admin: 05/18/21 11:58 Dose: 10 mg Documented by: ROSE MARY Admin: 05/18/21 07:30 Dose: 10 mg Documented by: Admin: 05/18/21 03:17 Dose: 10 mg Documented by: MARIO ALBERTO Admin: 05/17/21 20:23 Dose: 10 mg Documented by: MARIO ALBERTO Admin: 05/17/21 16:14 Dose: 10 mg Documented by: Admin: 05/17/21 11:44 Dose: 10 mg Documented by: Admin: 05/17/21 07:38 Dose: 5 mg Documented by: BARBARA Pantoprazole Sodium (Pantoprazole 40 Mg Tablet) 40 mg PO QAMAC [facility] Last Admin: 05/19/21 06:53 Dose: 40 mg Documented by: Admin: 05/18/21 08:37 Dose: 40 mg Documented by: ROSE MARY Admin: 05/17/21 07:38 Dose: 40 mg Documented by: BARBARA Senna (Sennosides 1 Tablet) 2 tab PO HS [facility] Last Admin: 05/18/21 21:50 Dose: 2 tab Documented by: MARIO ALBERTO Admin: 05/17/21 20:22 Dose: 2 tab Documented by: MARIO ALBERTO Admin: 05/16/21 21:05 Dose: 2 tab Documented by: MARIO ALBERTO Sodium Chloride (0.9 % Sodium Chloride 10 Ml Syringe) 10 ml IV Q8 [facility] Last Admin: 05/19/21 14:09 Dose: 10 ml Documented by: Admin: 05/19/21 04:44 Dose: 10 ml Documented by: MARIO ALBERTO Admin: 05/18/21 21:53 Dose: 10 ml Documented by: MARIO ALBERTO Admin: 05/18/21 12:54 Dose: 10 ml Documented by: Admin: 05/18/21 05:31 Dose: 10 ml Documented by: Admin: 05/17/21 20:18 Dose: 10 ml Documented by: MARIO ALBERTO Admin: 05/17/21 12:25 Dose: 10 ml Documented by: Admin: 05/17/21 06:05 Dose: 10 ml Documented by: MARIO ALBERTO Admin: 05/16/21 22:00 Dose: 10 ml Documented by: MARIO ALBERTO Admin: 05/16/21 14:00 Dose: Not Given Documented by: BARBARA Shift Summary 05/19/21 04:51 Shift Summary by Adeline Plummer Day of Hospitalization: 05/16 Date of Surgery (if applicable): 05/16 Lap Appy Pertinent Medical Dx/Issues (may be more than one): Admitted for appendicitis; Bacteremia; Stimulant abuse. Interventions (O2, wounds, diuresis, etc): 2 lap sites to lower abd and dressings are CDI. Vital Signs with Trends: VSS on RA Meds (abo, pain, BP, etc): PRN IV Dilaudid and Zofran; PO Oxycodone and Tylenol. IV Cipro. Alternated between Oxycodone and Dilaudid to help manage his pain. Lines/Tubes: 20g LAC SL Oxygen needs (home use vs. current use): None on this shift Lab/Rad results: WBC: 15.4; Hct: 36.3; Hgb: 11.8 Cardiac Rhythm (if applicable), alarms, trends: None Date of last BM: 05/18 Elimination: urinal/toilet Recommendations/questions for MD (DC Talavera? DC CM? PICC needed?): Trends (is the patient improving?): Activity: Up with 1 assist with GB/FWW. Expected date of discharge: TBD Discharge Plan (needs, disposition, etc): Additional info: Alert and oriented. Able to make needs known. TREVA drain output total was 145 mls on this shift. Discussed with pt the negative effects of pain meds on the bowels and that ambulating often would keep his bowels moving, he verbalized understanding and ambulated in the halls this AM with [employer]. Will update at bedside. Initialized on 05/19/21 04:51 - END OF NOTE
[2021-05-28 09:34] LABS: Opiate Confirmation Positive
== END 2021-05-19 16:50 | disposition home or self-care (01) | DRG 342 ==
LOC: MEDSUR 19:26 → ED 19:26 → INTOOBSV 05-16 00:30 → MEDSUR 05-16 00:30 → OBSVTOIN 05-16 00:30 → MEDSUR 05-18 10:30
PROVIDERS: ADMIT Family Medicine Adult Medicine; ATTEND Family Medicine Adult Medicine

== ENCOUNTER 2021-05-26 04:16 | Inpatient (IN) ==
[2021-05-26] MEDS ORDERED: IOPAMIDOL 100 ML BOTTLE IV ONE (04:17)
[2021-05-26] MEDS ORDERED: LACTATED RINGERS 1,000 ML IV ONE (04:59)
[2021-05-26] MEDS ORDERED: HYDROmorphone 0.5 MG/0.5 ML SYRINGE IV ONE (04:59)
[2021-05-26] MEDS ORDERED: ONDANSETRON 4 MG/2 ML VIAL IV ONE (05:02)
[2021-05-26] MEDS ORDERED: fentaNYL 100 MCG/2 ML VIAL IV ONE (05:27)
[2021-05-26 05:32] LABS: POC Creatinine 0.7 mg/dL (0.6-1.2)
[2021-05-26] MEDS ORDERED: DIAZEPAM 10 MG/2 ML SYRINGE IV ONE (06:18)
[2021-05-26 06:40] LABS: ALT/SGPT 70 U/L (<40); AST/SGOT 40 U/L (<40); Albumin 3.1 gm/dL (3.2-5.2); Albumin/Globulin Ratio 0.8 (1.0-2.3); Alkaline Phosphatase 143 U/L (39-117); Bilirubin,Total 0.2 mg/dL (0.1-1.0); Blood Urea Nitrogen 8 mg/dL (6-20); Calcium 9.3 mg/dL (8.6-10.4); Carbon Dioxide 22 mmol/L (22-30); Chloride 100 mmol/L (96-108); Globulin 3.9 gm/dL (2.2-3.7); Glomerular Filtration Rate 118; Glucose 106 mg/dL (70-105)
[2021-05-26 06:53] LABS: Basophils # (Auto) 0.07 K/mcL (0.00-0.30); Basophils % (Auto) 0.3 % (0.0-2.0); Eosinophils # (Auto) 0.17 K/mcL (0.00-0.70); Eosinophils % (Auto) 0.8 % (0.0-7.0); Hematocrit 39.7 % (40.1-51.0); Hemoglobin 12.8 g/dL (13.7-17.5); Lymphocytes % (Auto) 11.4 % (15.5-49.0); Mean Corpuscular HGB Conc 32.2 g/dL (31.0-36.0); Mean Platelet Volume 8.6 fL (7.4-10.4); Monocytes # (Auto) 1.22 K/mcL (0.10-0.90); Monocytes % (Auto) 6.1 % (1.0-12.0); Neutrophils % (Auto) 81.4 % (38.0-78.0); Platelet Count 610 K/mcL (140-440); RBC 4.41 M/mcL (4.63-6.08); Red Cell Distribution Width 12.9 % (11.5-14.5); WBC 20.1 K/mcL (4.5-11.0)
--- NOTE | 2021-05-26 06:57 | XRay Report ---
CLINICAL INFORMATION: R chest pain / SOB COMPARISON: 05/15/2021 FINDINGS: Heart size, mediastinum and pulmonary vessels are normal. Lungs are clear. No effusions. Bones soft tissues normal. IMPRESSION: Normal Interpreted and Authenticated by: Masood Young 05/26/21
--- NOTE | 2021-05-26 07:26 | Emergency Department Note ---
Abdominal Pain [facility] General Chief Complaint: Abdominal Pain Stated Complaint: abdominal pain Time Seen by Provider: 05/26/21 04:38 Source: patient Mode of arrival: ambulatory Limitations: no limitations History of Present Illness HPI Narrative: Narrative: 40-year-old male presenting to the ED with acutely worsening pleuritic right lower chest pain/right upper quadrant abdominal pain. No fever no chills no cough no overt chest pain or shortness of breath. He underwent a appendectomy around [address] Zaragoza and was septic. Initially did well and was discharged 1 week ago, coming in now with these worsening symptoms for the past 2 days. Is having regular bowel movements no urinary symptoms, is having serous/yellowish drainage from his JUDITH drain. Pain is severely worsened if he tries to lay down. No other acute complaints. No urinary symptoms. Related Data Previous Rx's Medication Instructions Recorded ciprofloxacin HCl 500 mg tablet 500 mg PO BID #20 tab 05/19/21 metronidazole 375 mg capsule 375 mg PO BID #20 cap 05/19/21 (Flagyl) oxycodone-acetaminophen 10 mg-325 1 tab PO Q4H PRN #40 tab 05/19/21 mg tablet (Endocet) Allergies Allergy/AdvReac Type Severity Reaction Status Date / Time No Known Drug Allergies Allergy Verified 05/26/21 04:17 Review of Systems ROS ROS Narrative: Narrative: At least 10 systems reviewed and otherwise acutely negative except as in the HPI [facility] Narrative Patient History Narrative: Narrative: Medical/Surgical/Family History All Active Problems (Updated 05/26/21 @ 07:29 by Miguel Woods DO) Chest pain, pleuritic (Acute) Abdominal pain, acute, right upper quadrant (Acute) Acute appendicitis with localized peritonitis and gangrene, without perforation (Acute) Methamphetamine use (Acute) Bacteremia due to Gram-negative bacteria (Acute) Dental abscess (Acute) Strain of lumbar region (Acute) Acute appendicitis (Acute) Hyponatremia (Acute) Surgical History (Updated 05/16/21 @ 10:51 by Reg Zaragoza MD) H/O left inguinal hernia repair Social History Smoking Status: Never smoker Alcohol Intake Frequency: does not drink Substance Use: amphetamines Exam Narrative Narrative: Narrative: Constitutional: normally developed, in some pain, nontoxic. Head: Normocephalic, atraumatic, Eyes: No Icterus, ENT: Moist mucus membranes, Neck: Supple, Cardiac: Normal heart sounds, palpable radial pulses, Pulmonary: Normal respiratory effort. Breath sounds clear, no wheeze, rhonchi, rales, Gastrointestinal: Abdomen soft, non-distended, healing surgical sites, david in place, well-appearing lower abdominal JUDITH drain in place with serous/purulent discharge no obvious bleeding. Abdomen is actually fairly nontender certainly not rigid/surgical and no rebound. Musculoskeletal: No gross deformities, well perfused Skin: warm, dry Neuro: Alert and oriented. General Limitations: no limitations Course Vital Signs Vital signs: Vital Signs Temperature 37.4 C H 05/26/21 04:17 Pulse Rate 92 H 05/26/21 04:17 Respiratory Rate 16 05/26/21 04:17 Blood Pressure 123/76 05/26/21 04:17 Pulse Oximetry (%) 95 05/26/21 04:17 Temperature 37.4 C H 05/26/21 04:17 Pulse Rate 82 05/26/21 07:15 Respiratory Rate 16 05/26/21 04:17 Blood Pressure 135/66 05/26/21 07:15 Pulse Oximetry (%) 97 05/26/21 07:15 [facility] Narrative Medical decision making narrative: Narrative: Patient with severely worsening right lower thoracic pain described as pleuritic dyspnea in nature. Vitals are stable but given his severely worsening symptoms concern for possible PE versus referred pain secondary to postoperative intra-abdominal process although he really does not endorse diffuse abdominal pain. No other acute complaints. Work-up is initiated will obtain CTA thorax to assess for any PE as well as abdominal scan Is given fluids analgesia Chest x-ray shows no acute findings CBC does show white count of 20, stable hemoglobin Electrolytes show no significant derangements Patient is having difficulty secondary to pain when he tries to lay down, in order to obtain CT scans. We will give some further analgesia muscle relaxation and reevaluate. Signed out to Dr. Marquis for further management. Lab Data Result diagrams: 05/26/21 05:29 05/26/21 05:29 Labs: Lab Results 05/26/21 05/26/21 Range/Units 05:29 05:29 WBC 20.1 H (4.5-11.0) K/mcL RBC 4.41 L (4.63-6.08) M/mcL Hgb 12.8 L (13.7-17.5) g/dL Hct 39.7 L (40.1-51.0) % MCV 90.0 (80.0-100.0) fL MCH 29.0 (26.0-34.0) pg MCHC 32.2 (31.0-36.0) g/dL RDW 12.9 (11.5-14.5) % Plt Count 610 H (140-440) K/mcL MPV 8.6 (7.4-10.4) fL Neut % (Auto) 81.4 H (38.0-78.0) % Lymph % (Auto) 11.4 L (15.5-49.0) % Valley % (Auto) 6.1 (1.0-12.0) % Eos % (Auto) 0.8 (0.0-7.0) % Baso % (Auto) 0.3 (0.0-2.0) % Lymph # (Auto) 2.30 (1.50-4.80) K/mcL Valley # (Auto) 1.22 H (0.10-0.90) K/mcL Eos # (Auto) 0.17 (0.00-0.70) K/mcL Baso # (Auto) 0.07 (0.00-0.30) K/mcL Absolute Neutrophils 16.38 H (1.80-8.00) K/mcL Sodium 134 (133-145) mmol/L Potassium 4.3 (3.3-5.1) mmol/L Chloride 100 (96-108) mmol/L Carbon Dioxide 22 (22-30) mmol/L Anion Gap 12.0 (8.0-16.0) BUN 8 (6-20) mg/dL Creatinine 0.7 (0.7-1.2) mg/dL POC Creatinine 0.7 (0.6-1.2) mg/dL GFR Calculation 118 Glucose 106 H (70-105) mg/dL Calcium 9.3 (8.6-10.4) mg/dL Total Bilirubin 0.2 (0.1-1.0) mg/dL AST 40 H (<40) U/L ALT 70 H (<40) U/L Alkaline Phosphatase 143 H (39-117) U/L Total Protein 7.0 (5.9-8.4) gm/dL Albumin 3.1 L (3.2-5.2) gm/dL Globulin 3.9 H (2.2-3.7) gm/dL Albumin/Globulin Ratio 0.8 L (1.0-2.3) Lipase 41 (7-60) U/L Discharge Plan Patient/Caregiver Discharge Instructions Pt seen by RACK CLEANER/PA only: No Clinical Impression: Chest pain, pleuritic, Abdominal pain, acute, right upper quadrant Patient Disposition: Still a Patient Condition: Fair Follow up with: No,PCP [Primary Care Provider] - Prescriptions: No Action ciprofloxacin HCl 500 mg tablet 500 mg PO BID Qty: 20 0RF metronidazole [Flagyl] 375 mg capsule 375 mg PO BID Qty: 20 0RF oxycodone-acetaminophen [Endocet] 10-325 mg tablet 1 tab PO Q4H PRN (Reason: Pain) Qty: 40 0RF
--- NOTE | 2021-05-26 07:27 | Emergency Department Note ---
Course Course Course Narrative: Assumed care from Dr. Green at the change of shift. I evaluated the patient in person at 7:25 AM. He is resting comfortably in bed complains of continued pain in his right upper quadrant radiating into his lower abdomen. Abdomen is soft and nontender to palpation without guarding or rebound tenderness. He has normal neck mobility. Mallampati is 1. We will reassess once his diazepam has had sufficient time to provide muscle relaxation. If this is not effective given the significant amounts of pain medication he has already received I think the best course to proceed would be to provide procedural sedation to facilitate imaging. The patient is agreeable with plan. Vital Signs Vital signs: Vital Signs Temperature 99.4 F H 05/26/21 04:17 Pulse Rate 92 H 05/26/21 04:17 Respiratory Rate 16 05/26/21 04:17 Blood Pressure 123/76 05/26/21 04:17 Pulse Oximetry (%) 95 05/26/21 04:17 Temperature 99.4 F H 05/26/21 04:17 Pulse Rate 80 05/26/21 10:31 Respiratory Rate 14 05/26/21 10:31 Blood Pressure 118/84 05/26/21 10:31 Pulse Oximetry (%) 96 05/26/21 10:31 Procedures Other Procedure: Procedural sedation I discussed the risks and potential benefits with the patient prior to the sedation. Please see my above documentation for the presedation assessment. Patient was placed on monitor car operator continuous pulse oximetry and end-tidal capnography. He was given 1 mg/kg of ketamine via slow IV push. He became disassociated and the imaging was completed. Following the procedure, he returned to his baseline neurologic status. He maintained oxygen saturation greater than 90% with positive end-tidal capnography throughout the sedation. No complications were observed. Total sedation time was 16 minutes. MDM MDM Narrative Medical decision making narrative: Patient presents with worsening abdominal pain after recent complicated appendectomy. CT pulmonary angiogram is nondiagnostic but does not reveal any obvious pulmonary emboli. CT of his abdomen and pelvis does reveal multiple fluid collections consistent with abscess formation. He has a mild transaminitis and leukemoid white count. Presentation seems most consistent with multiple intra-abdominal abscesses. Although he did have a nondiagnostic pulmonary angiogram we have a reasonable alternative explanation for his pain so I do not think he would benefit from further investigation for PE. I discussed the test results with the patient his mother and grandmother. They are agreeable with the plan for admission. I discussed his history examination diagnostic findings with Dr. Zaragoza who would like the patient admitted to his service. Lab Data Lab results reviewed: Yes I reviewed the patient's lab results. Result diagrams: 05/26/21 05:29 05/26/21 05:29 Labs: Lab Results 05/26/21 05/26/21 Range/Units 05:29 05:29 WBC 20.1 H (4.5-11.0) K/mcL RBC 4.41 L (4.63-6.08) M/mcL Hgb 12.8 L (13.7-17.5) g/dL Hct 39.7 L (40.1-51.0) % MCV 90.0 (80.0-100.0) fL MCH 29.0 (26.0-34.0) pg MCHC 32.2 (31.0-36.0) g/dL RDW 12.9 (11.5-14.5) % Plt Count 610 H (140-440) K/mcL MPV 8.6 (7.4-10.4) fL Neut % (Auto) 81.4 H (38.0-78.0) % Lymph % (Auto) 11.4 L (15.5-49.0) % [place] % (Auto) 6.1 (1.0-12.0) % Eos % (Auto) 0.8 (0.0-7.0) % Baso % (Auto) 0.3 (0.0-2.0) % Lymph # (Auto) 2.30 (1.50-4.80) K/mcL [place] # (Auto) 1.22 H (0.10-0.90) K/mcL Eos # (Auto) 0.17 (0.00-0.70) K/mcL Baso # (Auto) 0.07 (0.00-0.30) K/mcL Absolute Neutrophils 16.38 H (1.80-8.00) K/mcL Sodium 134 (133-145) mmol/L Potassium 4.3 (3.3-5.1) mmol/L Chloride 100 (96-108) mmol/L Carbon Dioxide 22 (22-30) mmol/L Anion Gap 12.0 (8.0-16.0) BUN 8 (6-20) mg/dL Creatinine 0.7 (0.7-1.2) mg/dL POC Creatinine 0.7 (0.6-1.2) mg/dL GFR Calculation 118 Glucose 106 H (70-105) mg/dL Calcium 9.3 (8.6-10.4) mg/dL Total Bilirubin 0.2 (0.1-1.0) mg/dL AST 40 H (<40) U/L ALT 70 H (<40) U/L Alkaline Phosphatase 143 H (39-117) U/L Total Protein 7.0 (5.9-8.4) gm/dL Albumin 3.1 L (3.2-5.2) gm/dL Globulin 3.9 H (2.2-3.7) gm/dL Albumin/Globulin Ratio 0.8 L (1.0-2.3) Lipase 41 (7-60) U/L Discharge Plan Patient/Caregiver Discharge Instructions Pt seen by SUPERVISOR [employer]ACE[employer] LINE/PA only: No Clinical Impression: Postoperative intra-abdominal abscess Patient Disposition: Xfer As Inpt ([facility]) Condition: Fair Follow up with: No,PCP [Primary Care Provider] - Prescriptions: No Action ciprofloxacin HCl 500 mg tablet 500 mg PO BID Qty: 20 0RF metronidazole [Flagyl] 375 mg capsule 375 mg PO BID Qty: 20 0RF oxycodone-acetaminophen [Endocet] 10-325 mg tablet 1 tab PO Q4H PRN (Reason: Pain) Qty: 40 0RF
[2021-05-26] MEDS ORDERED: KETAMINE 10 MG/ML ML IV ONE (08:12)
--- NOTE | 2021-05-26 09:54 | Cat Scan Report ---
CLINICAL INFORMATION: Right-sided chest pain COMPARISON: None. TECHNIQUE: 80ml of Isovue-370 were injected intravenously. Using SmartPrep to maximize pulmonary artery opacification, .625mm helical slices were obtained from the lung apices through the lung bases. Following reconstruction, 2.5 mm sagittal, coronal, and axial reformations were processed. The exam was reviewed at mediastinal, lung, and bone windows. The exam was performed using radiation dose optimization techniques including, but not limited to, automated exposure control, adjustment of the mA and/or kV according to patient size and use of iterative reconstruction technique. FINDINGS: Pulmonary parenchymal windows show subsegmental atelectasis in both inferior lower lobes. A 3 mm nodule in the lateral segment of the right middle lobe on MIP image 46 is in benign size range should represent a benign granuloma. No infiltrates. Pleural spaces are unremarkable-no effusions. Mediastinal windows show the heart is grossly normal in size and configuration. The pulmonary arteries are normal diameter and suboptimally opacified but no evidence of central embolus. Thoracic aorta is also normal diameter and well-opacified. There is no adenopathy in the mediastinal, hilar or axillary regions. Esophagus is grossly normal. The thyroid is unremarkable. Bones and soft tissues the chest wall are normal. Images through the superior abdomen are unremarkable. IMPRESSION: No evidence of pulmonary embolus. Subsegmental atelectasis both inferior lower lobes. Interpreted and Authenticated by: Masood Young 05/26/21
--- NOTE | 2021-05-26 10:09 | Cat Scan Report ---
CLINICAL INFORMATION: Right abdominal pain. Status post appendectomy COMPARISON: Preoperative abdomen and pelvic CT 05/15/2021 TECHNIQUE: Enteric contrast was withheld. 80 cc of Isovue-370 were injected intravenously, and 60 seconds later, 0.625 mm helical slices were obtained from the mid heart through the subtrochanteric regions. Following reconstruction, 2.5 mm sagittal, coronal and axial reformatted images were processed and reviewed at bone, lung and soft tissue windows. Five minutes later, 0.625 mm helical slices were obtained from the mid heart through the kidneys and viewed at soft tissue windows.The exam was performed using radiation dose optimization techniques including, but not limited to, automated exposure control, adjustment of the mA and/or kV according to patient size and use of iterative reconstruction technique. FINDINGS: Lung bases show subsegmental atelectasis.. No effusions. The visualized heart is grossly normal. Abdominal images show the gallbladder and bile ducts, liver, both kidneys, adrenal glands, spleen, pancreas and aorta, including aortic branches, are normal in size, configuration and attenuation without focal lesion. There is no free air, free fluid or adenopathy. Pelvic images show normal prostate, seminal vesicles and urinary bladder. The appendix is now surgically absent. A drain extends from the anterior pericecal region leftward to exit the anterior abdominal wall in the left infraumbilical region. There is no undrained fluid about the drain. A 6.5 x 2.4 cm encapsulated fluid collection has developed in the medial pericecal region. It is suspicious for abscess. A second 4 cm encapsulated fluid collection has developed in the retrovesical region anterior to the rectum. This could also represent a small abscess. Scattered sigmoid diverticuli appreciated no evidence of diverticulitis. The remaining large bowel, small bowel and stomach are normal. Bone windows show no osseous abnormality IMPRESSION: 1. Status post appendectomy. 6.5 cm encapsulated fluid collection in the medial pericecal region and 4 cm encapsulated fluid collection in the deep true pelvis posterior to the urinary bladder. These could represent abscesses. 2. 12 mm small fluid collection in the right lateral conal fascia is new from the previous preoperative CT. It likely represents a small retroperitoneal abscess Interpreted and Authenticated by: Masood Young 05/26/21
[2021-05-26] MEDS ORDERED: PIPERACILLIN SODIUM/TAZOBACTAM 4.5 GM in DEXTROSE 5% IN WATER 50 ML IV ONE (10:57)
[2021-05-26] MEDS ORDERED: morphine 4 MG/ML VIAL IV ONE (10:57)
--- NOTE | 2021-05-26 12:22 | General Surg History&Physical ---
HPI History of Present Illness Patient information: Note initiated : 05/26/21 at 12:15 pm Service Date, if different from initiated Date: [] Patient: Barrington Elizabeth a 40 y/o M admitted on for Abdominal Pain . Chief Complaint: [] Chief complaint: Peritoneal abscess History of present illness: Mr. Elizabeth is a 40 year old M who was readmitted for treatment of a postoperative intra-abdominal abscess from necrotizing appendicitis. Patient presented on 16 May with acute abdominal pain and findings of acute appendicitis. He underwent laparoscopic appendectomy. He was found to have an acute separative early necrotizing appendix without abscess. The bed of the appendix was drained and the patient defervesced and his white blood count was down to 14,000 at the time of discharge. His drainage has been serous without purulence. 2 days ago he developed increasing lower abdominal and right flank pain and had fever and chills. He returned to the emergency room today and is found to have a significant abscess in the right lower quadrant medial to his operative site. There is also a small 12 mm collection in the pelvis that may represent abscess also. His white count is up to 20,000. Patient is admitted and will have CT-guided percutaneous drainage of the larger abscess. He will have follow-up CT in about 4 days and further treatment will be based on the CT findings. Constitutional Constitutional: Present excessive sweating, fatigue, lethargy, malaise, night sweats and weakness Cardiovascular Cardiovascular: Absent dyspnea, palpatations or rapid heart rate Gastrointestinal Gastrointestinal: Present nausea; Absent vomiting Hematologic/Lymphatic Hematologic/Lymphatic: Absent easy bleeding, easy bruising or lymphadenopathy PFSH PFSH All Active Problems Postoperative intra-abdominal abscess (Acute) Acute appendicitis with localized peritonitis and gangrene, without perforation (Acute) Methamphetamine use (Acute) Bacteremia due to Gram-negative bacteria (Acute) Dental abscess (Acute) Strain of lumbar region (Acute) Acute appendicitis (Acute) Hyponatremia (Acute) Surgical History H/O left inguinal hernia repair Social History smoking status: Current every day smoker tobacco type: cigarettes per day: 20 quit status: not considering quitting alcohol intake frequency: does not drink substance use type: amphetamines MEDS/ALLERGIES Home Medications and Allergies Home Medications Medication Instructions Recorded Confirmed Type ciprofloxacin HCl 500 mg tablet 500 mg PO BID #20 tab 05/19/21 05/26/21 Rx metronidazole 375 mg capsule 375 mg PO BID #20 cap 05/19/21 05/26/21 Rx (Flagyl) oxycodone-acetaminophen 10 mg-325 1 tab PO Q4H PRN #40 tab 05/19/21 05/26/21 Rx mg tablet (Endocet) Allergies Allergy/AdvReac Type Severity Reaction Status Date / Time No Known Drug Allergies Allergy Verified 05/26/21 04:17 Physical Examination Vital Signs Vital signs: Temp Pulse Resp BP Pulse Ox 99.4 F H 80 13 118/81 98 05/26/21 04:17 05/26/21 12:01 05/26/21 12:01 05/26/21 12:01 05/26/21 12:01 General physical appearance General physical exam: well developed, well nourished, no distress, moderate pain and obese Eyes Eye exam: PERRL and normal ocular movement ENT ENT exam: normal mucosa, no hearing loss and no congestion Head Head exam IM: Present atraumatic, normal inspection and normocephalic Neck Neck exam: no masses, no bruits, trachea midline, no lymphadenopathy and no venous distension Cardiovascular Cardiovascular exam IM: Present normal rate and rhythm, RRR, +S1 and +S2; Absent gallop or JVD Respiratory Respiratory exam: normal expansion, normal respiratory effort and clear to auscultation Abdomen Abdomen: Present tender (RLQ) Integumentary Integumentary: Present no rash and no growths Musculoskeletal Musculoskeletal: Present normal gait and normal posture Psychiatric Psychiatric: Present oriented to time, oriented to person, oriented to place, speech is normal and memory intact Results Labs Result diagrams: 05/27/21 05:17 05/27/21 05:17 Labs: Abnormal lab results 05/26/21 05/26/21 Range/Units 05:29 05:29 WBC 20.1 H (4.5-11.0) K/mcL RBC 4.41 L (4.63-6.08) M/mcL Hgb 12.8 L (13.7-17.5) g/dL Hct 39.7 L (40.1-51.0) % Plt Count 610 H (140-440) K/mcL Neut % (Auto) 81.4 H (38.0-78.0) % Lymph % (Auto) 11.4 L (15.5-49.0) % [place] # (Auto) 1.22 H (0.10-0.90) K/mcL Absolute Neutrophils 16.38 H (1.80-8.00) K/mcL Glucose 106 H (70-105) mg/dL AST 40 H (<40) U/L ALT 70 H (<40) U/L Alkaline Phosphatase 143 H (39-117) U/L Albumin 3.1 L (3.2-5.2) gm/dL Globulin 3.9 H (2.2-3.7) gm/dL Albumin/Globulin Ratio 0.8 L (1.0-2.3) Diabetes panel 05/26/21 Range/Units 05:29 Sodium 134 (133-145) mmol/L Potassium 4.3 (3.3-5.1) mmol/L Chloride 100 (96-108) mmol/L Carbon Dioxide 22 (22-30) mmol/L BUN 8 (6-20) mg/dL Creatinine 0.7 (0.7-1.2) mg/dL Glucose 106 H (70-105) mg/dL Calcium 9.3 (8.6-10.4) mg/dL AST 40 H (<40) U/L ALT 70 H (<40) U/L Alkaline Phosphatase 143 H (39-117) U/L Total Protein 7.0 (5.9-8.4) gm/dL Albumin 3.1 L (3.2-5.2) gm/dL Calcium panel 05/26/21 Range/Units 05:29 Calcium 9.3 (8.6-10.4) mg/dL Albumin 3.1 L (3.2-5.2) gm/dL Pituitary panel 05/26/21 Range/Units 05:29 Sodium 134 (133-145) mmol/L Potassium 4.3 (3.3-5.1) mmol/L Chloride 100 (96-108) mmol/L Carbon Dioxide 22 (22-30) mmol/L BUN 8 (6-20) mg/dL Creatinine 0.7 (0.7-1.2) mg/dL Glucose 106 H (70-105) mg/dL Calcium 9.3 (8.6-10.4) mg/dL Adrenal panel 05/26/21 Range/Units 05:29 Sodium 134 (133-145) mmol/L Potassium 4.3 (3.3-5.1) mmol/L Chloride 100 (96-108) mmol/L Carbon Dioxide 22 (22-30) mmol/L BUN 8 (6-20) mg/dL Creatinine 0.7 (0.7-1.2) mg/dL Glucose 106 H (70-105) mg/dL Calcium 9.3 (8.6-10.4) mg/dL Total Bilirubin 0.2 (0.1-1.0) mg/dL AST 40 H (<40) U/L ALT 70 H (<40) U/L Alkaline Phosphatase 143 H (39-117) U/L Total Protein 7.0 (5.9-8.4) gm/dL Albumin 3.1 L (3.2-5.2) gm/dL All other labs normal. A/P Assessment and plan (1) Postoperative intra-abdominal abscess: Status: Acute (2) Acute appendicitis with localized peritonitis and gangrene, without perforation: Status: Acute (3) Methamphetamine use: Status: Acute (4) Bacteremia due to Gram-negative bacteria: Status: Acute Narrative A/P Narrative: MERROPENEM 2GM IV Q8H PERCUTANEOUS DRAINAGE OF ABSCESS WITH C T GUIDANCE F/U C T IN 4 DAYS Time Spent With Patient Time: Total time spent is greater than 50% in coordination of care (as documented) at patient's floor/unit and/or counseling patient:
[2021-05-26] MEDS ORDERED: LORazepam 1 MG TABLET PO PRN (13:50)
[2021-05-26] MEDS ORDERED: traZODone HCL 50 MG TABLET PO PRN (13:50)
[2021-05-26] MEDS ORDERED: ONDANSETRON 4 MG/2 ML VIAL IV PRN ×2 (13:50)
[2021-05-26] MEDS ORDERED: MEROPENEM 2 GM in 0.9 % SODIUM CHLORIDE 50 ML IV SCH (14:00)
[2021-05-26] MEDS: MEROPENEM 2 GM in 0.9 % SODIUM CHLORIDE 100 ML IV SCH ×2 (14:05→23:02)
[2021-05-26 14:29] LABS: Prothrombin Time 13.5 sec (11.9-14.5)
[2021-05-26] MEDS: 0.9 % SODIUM CHLORIDE 10 ML SYRINGE IV SCH ×2 (14:33→22:14)
[2021-05-26] MEDS: 0.9 % SODIUM CHLORIDE 1,000 ML IV SCH ×2 (14:33→23:03)
[2021-05-26] MEDS: HYDROmorphone 1 MG/ML SYRINGE IV PRN ×2 (16:40→22:11)
[2021-05-26] MEDS: DOCUSATE SODIUM 100 MG CAPSULE PO SCH (22:13)
[2021-05-26] MEDS: SENNOSIDES 1 TABLET PO SCH (22:13)
[2021-05-26] MEDS ORDERED: FAMOTIDINE/PF 20 MG/2 ML VIAL IV ONE (22:23)
[2021-05-27] MEDS: HYDROmorphone 1 MG/ML SYRINGE IV PRN ×9 (02:12→22:30)
[2021-05-27] MEDS: 0.9 % SODIUM CHLORIDE 10 ML SYRINGE IV SCH ×3 (05:38→21:57)
[2021-05-27] MEDS: MEROPENEM 2 GM in 0.9 % SODIUM CHLORIDE 100 ML IV SCH ×3 (05:39→22:30)
[2021-05-27] MEDS: 0.9 % SODIUM CHLORIDE 1,000 ML IV SCH ×4 (05:40→21:57)
[2021-05-27] MEDS: PANTOPRAZOLE 40 MG TABLET PO SCH (06:19)
[2021-05-27 07:20] LABS: Basophils # (Auto) 0.04 K/mcL (0.00-0.30); Basophils % (Auto) 0.2 % (0.0-2.0); Eosinophils # (Auto) 0.18 K/mcL (0.00-0.70); Eosinophils % (Auto) 0.9 % (0.0-7.0); Hematocrit 36.3 % (40.1-51.0); Hemoglobin 11.9 g/dL (13.7-17.5); Lymphocytes % (Auto) 7.8 % (15.5-49.0); Mean Cell Volume 89.6 fL (80.0-100.0); Mean Corpuscular HGB Conc 32.8 g/dL (31.0-36.0); Mean Platelet Volume 8.6 fL (7.4-10.4); Monocytes # (Auto) 1.45 K/mcL (0.10-0.90); Monocytes % (Auto) 7.1 % (1.0-12.0); Platelet Count 574 K/mcL (140-440); RBC 4.05 M/mcL (4.63-6.08); Red Cell Distribution Width 12.9 % (11.5-14.5); WBC 20.4 K/mcL (4.5-11.0)
[2021-05-27] MEDS: DOCUSATE SODIUM 100 MG CAPSULE PO SCH ×2 (07:44→21:56)
[2021-05-27 08:22] LABS: ALT/SGPT 50 U/L (<40); AST/SGOT 30 U/L (<40); Albumin 2.9 gm/dL (3.2-5.2); Albumin/Globulin Ratio 0.9 (1.0-2.3); Alkaline Phosphatase 125 U/L (39-117); Bilirubin,Direct < 0.2 mg/dL (0-0.3); Bilirubin,Total 0.2 mg/dL (0.1-1.0); Blood Urea Nitrogen 8 mg/dL (6-20); Calcium 9.1 mg/dL (8.6-10.4); Carbon Dioxide 24 mmol/L (22-30); Chloride 101 mmol/L (96-108); Globulin 3.2 gm/dL (2.2-3.7); Glomerular Filtration Rate 136; Glucose 98 mg/dL (70-105); Lactate Dehydrogenase 200 U/L (135-225); Phosphorous 3.3 mg/dL (2.5-4.5); Triglycerides 89 mg/dL (<150)
[2021-05-27] MEDS ORDERED: fentaNYL 100 MCG/2 ML VIAL IV ONE ×2 (09:31→13:43)
--- NOTE | 2021-05-27 13:03 | General Surgery Progress Note ---
SUBJECTIVE Subjective Patient information: Note initiated : 05/27/21 at 12:58 pm Service Date, if different from initiated Date: [] Patient: Barrington Elizabeth 40 y/o M admitted on 05/26/21 for Abdominal Pain . Chief Complaint: [] Principal diagnosis: Intra-abdominal abscess Interval history: Patient admitted with intra-abdominal abscess status post laparoscopic appendectomy for necrotizing appendicitis. He is waiting to have percutaneous drainage of the larger abscess. This will be done later this afternoon. Patient states that he feels about the same. Vital signs are stable. Maximum temperature was 99.4 last evening. White blood count is still 20,000. He denies nausea Constitutional Vitals: Vital Signs Temp Pulse Resp BP Pulse Ox 97.2 F 80 18 116/73 93 05/27/21 08:00 05/27/21 08:00 05/27/21 08:00 05/27/21 08:00 05/27/21 08:00 Period Temp Pulse Resp BP Sys/Ramirez Pulse Ox Last 24 Hr 97.0 F-99.4 F 77-94 13-20 97-139/66-85 91-94 Intake and Output 05/26/21 05/27/21 05/27/21 21:59 05:59 13:59 Intake Total 500 1100 1100 Output Total 650 1015 750 Balance -150 85 350 Weight 261 lb Intake & Output: Intake & Output 05/26/21 05/27/21 05/27/21 21:59 05:59 13:59 Intake Total 500 1100 1100 Output Total 650 1015 750 Balance -150 85 350 Weight 261 lb Intake: IV 100 1100 1100 Sodium Chloride 0.9% 1,000 ml @ 1000 1000 125 mls/hr IV .Q8H PRISCA Rx#: [id number] Merrem 2 gm In Sodium Chloride 100 100 100 0.9% 100 ml @ 100 mls/hr IV Q8H PRISCA Rx#:[id number] Oral 400 0 Output: Drainage 15 Right Abdomen 15 Void Amount 650 1000 750 Other: Urine Appearance Clear Clear Clear Urine Color Bright Yellow Dark Yellow Dark Yellow Urine Odor Normal ENT ENT exam: Present mucous membranes moist, normal exam and normal oropharynx Neck Neck exam: Present full ROM and normal inspection Respiratory Respiratory exam: Present normal respiratory exam and CTAB; Absent rales or rhonchi Cardiovascular Cardiovascular exam: Present normal rate and rhythm, RRR, +S1 and +S2 GI/Abdominal GI/Abdominal exam: Present normal bowel sounds and tenderness (moderate tenderness in rlq) Extremities Exam Extremities exam: Present full ROM, normal capillary refill and neurovascular intact Neurological Exam Neurological exam: Present alert and oriented X3 Psychiatric Psychiatric exam: Present normal affect and normal mood A/P Assessment and plan (1) Postoperative intra-abdominal abscess: Status: Acute (2) Acute appendicitis with localized peritonitis and gangrene, without perforation: Status: Acute Time Spent With Patient Time: Total time spent is greater than 50% in coordination of care (as documented) at patient's floor/unit and/or counseling patient:
[2021-05-27] MEDS ORDERED: MIDAZOLAM 2 MG/2 ML VIAL IV ONE (13:43)
--- NOTE | 2021-05-27 15:45 | Cat Scan Report ---
CLINICAL INFORMATION: Pericecal abscess COMPARISON: Abdomen and pelvic CT 05/26/2021 TECHNIQUE: The procedure and risks including the possibility of bleeding, infection and inadequate drainage, bowel perforation were explained to the patient. He understood and wished to proceed. Conscious sedation was provided with Versed and fentanyl given in divided aliquots-please medication sheet for dosages. The patient maintained consciousness during the procedure. Pulse oximetry and blood pressure were monitored. Total sedation time: 20 minutes. With the patient supine position, the abscess was first CT localized. The right lower quadrant skin, overlying the abscess was marked, prepped and locally anesthetized 1% lidocaine using a 25-gauge spinal needle to the level the abscess capsule. A 17-gauge styletted needle was advanced under CT guidance into the center of the cavity. Approximately 6 cc of purulent fluid was aspirated and sent for Gram stain culture and sensitivity. The stylette was removed and 0.035 J-wire was coiled abscess cavity. The tract was sequentially dilated to 12 Fijian and 12 Fijian APD pigtail multi-sidehole catheter was placed into the cavity over the wire. The wire was removed and the catheter was secured to the skin with disc and suture. Approximately 40 cc of fluid was aspirated and the cavity was vigorously irrigated with 10 cc aliquots of saline. Postprocedure scanning shows the tube in optimal position within the center of the cavity and near complete collapse of the abscess cavity. IMPRESSION: Successful CT-guided placement of 12 [place]ian percutaneous drain in the medial pericecal abscess. 40 cc of purulent fluid was aspirated and sent for Gram stain, culture and sensitivity. The cavity was vigorously irrigated with 10 cc aliquots of normal sterile saline. Postprocedure scanning shows the collapsed cavity with the tube optimally placed in the center of the cavity. The nurses were instructed to flush forward and back 10 cc normal saline every eight hours and record the output of the tube. Tube output is less than 5 cc over 24 hours and the patient is asymptomatic, suggest repeat CT prior to drain removal. Interpreted and Authenticated by: Masood Young 05/27/21
[2021-05-27] MEDS: CYCLOBENZAPRINE 10 MG TABLET PO PRN (17:56)
[2021-05-27] MEDS: SENNOSIDES 1 TABLET PO SCH (21:55)
[2021-05-28] MEDS: CYCLOBENZAPRINE 10 MG TABLET PO PRN ×3 (02:45→15:47)
[2021-05-28] MEDS: HYDROmorphone 1 MG/ML SYRINGE IV PRN ×7 (02:45→23:33)
[2021-05-28] MEDS: MEROPENEM 2 GM in 0.9 % SODIUM CHLORIDE 100 ML IV SCH ×3 (06:25→21:50)
[2021-05-28] MEDS: 0.9 % SODIUM CHLORIDE 10 ML SYRINGE IV SCH ×3 (06:26→21:52)
[2021-05-28] MEDS: 0.9 % SODIUM CHLORIDE 1,000 ML IV SCH ×4 (06:30→22:19)
[2021-05-28 07:09] LABS: Basophils # (Auto) 0.05 K/mcL (0.00-0.30); Basophils % (Auto) 0.3 % (0.0-2.0); Eosinophils % (Auto) 1.3 % (0.0-7.0); Hemoglobin 11.2 g/dL (13.7-17.5); Lymphocytes # (Auto) 2.02 K/mcL (1.50-4.80); Lymphocytes % (Auto) 13.4 % (15.5-49.0); Mean Cell Volume 89.1 fL (80.0-100.0); Mean Platelet Volume 8.6 fL (7.4-10.4); Monocytes # (Auto) 1.29 K/mcL (0.10-0.90); Monocytes % (Auto) 8.5 % (1.0-12.0); Neutrophils % (Auto) 76.5 % (38.0-78.0); Platelet Count 573 K/mcL (140-440); RBC 3.93 M/mcL (4.63-6.08); Red Cell Distribution Width 12.8 % (11.5-14.5); WBC 15.1 K/mcL (4.5-11.0)
[2021-05-28] MEDS: PANTOPRAZOLE 40 MG TABLET PO SCH (07:35)
[2021-05-28] MEDS: DOCUSATE SODIUM 100 MG CAPSULE PO SCH ×2 (08:42→21:50)
--- NOTE | 2021-05-28 13:20 | General Surgery Progress Note ---
SUBJECTIVE Subjective Patient information: Note initiated : 05/28/21 at 1:13 pm Service Date, if different from initiated Date: [] Patient: Barrington Elizabeth 40 y/o M admitted on 05/26/21 for Abdominal Pain . Chief Complaint: [] Principal diagnosis: Intra-abdominal abscess Interval history: Patient states that he feels better. He is afebrile. CT-guided percutaneous aspiration of the abscess cavity was carried out with drainage of pus. The cavity was irrigated a drain was left in place for serial irrigations. He has serosanguineous drainage that is hooked to a dependent drain. White blood count has decreased from 20,000-15,000. He had some back pain last evening but this improved with cyclobenzaprine. He denies nausea. He is passing flatus without difficulty. Constitutional Vitals: Vital Signs Temp Pulse Resp BP Pulse Ox 97 F 82 18 114/71 96 05/28/21 11:54 05/28/21 11:54 05/28/21 11:54 05/28/21 11:54 05/28/21 11:54 Period Temp Pulse Resp BP Sys/Ramirez Pulse Ox Last 24 Hr 97 F-98.5 F 79-92 16-20 105-122/66-81 91-96 Intake and Output 05/27/21 05/28/21 05/28/21 21:59 05:59 13:59 Intake Total 9812 027 4798 Output Total 920 850 750 Balance 126 -510 350 Weight 263 lb Intake & Output: Intake & Output 05/27/21 05/28/21 05/28/21 21:59 05:59 13:59 Intake Total 8105 954 7267 Output Total 920 850 750 Balance 126 -510 350 Weight 263 lb Intake: IV 569 531 7224 Sodium Chloride 0.9% 1,000 ml @ 1000 125 mls/hr IV .Q8H PRISCA Rx#: [id number] Merrem 2 gm In Sodium Chloride 100 100 100 0.9% 100 ml @ 100 mls/hr IV Q8H PRISCA Rx#:[id number] Oral 240 Other 946 Output: Drainage 120 Right Abdomen 105 Right Pigtail 15 Drainage 125 Right Abdomen 80 Right Pigtail 45 Void Amount 800 725 750 Other: Urine Appearance Clear Clear Urine Color Bright Yellow Bright Yellow Urine Odor Normal ENT ENT exam: Present normal external ear exam and normal oropharynx Neck Neck exam: Present full ROM and normal inspection Respiratory Respiratory exam: Present normal respiratory exam and CTAB; Absent respiratory distress Cardiovascular Cardiovascular exam: Present normal rate and rhythm, RRR, +S1 and +S2; Absent JVD GI/Abdominal GI/Abdominal exam: Present normal bowel sounds, soft and distended; Absent mass Additional comments: Drain in right flank with serosanguineous drainage Extremities Exam Extremities exam: Present normal capillary refill and neurovascular intact Neurological Exam Neurological exam: Present alert, oriented X3 and reflexes normal Psychiatric Psychiatric exam: Present normal affect and normal mood A/P Assessment and plan (1) Postoperative intra-abdominal abscess: Status: Acute (2) Acute appendicitis with localized peritonitis and gangrene, without perforation: Status: Acute Narrative A/P Narrative: Patient is doing well. He is tolerating diet without difficulty. Leukocytosis is improved. Patient will be continued on present therapy and antibiotics will be altered based on final sensitivity status. Time Spent With Patient Time: Total time spent is greater than 50% in coordination of care (as documented) at patient's floor/unit and/or counseling patient:
[2021-05-28] MEDS: SENNOSIDES 1 TABLET PO SCH (21:49)
[2021-05-29] MEDS: 0.9 % SODIUM CHLORIDE 1,000 ML IV SCH ×6 (02:00→21:49)
[2021-05-29] MEDS: 0.9 % SODIUM CHLORIDE 10 ML SYRINGE IV SCH ×3 (04:56→21:50)
[2021-05-29] MEDS: HYDROmorphone 1 MG/ML SYRINGE IV PRN ×8 (05:10→23:49)
[2021-05-29] MEDS: MEROPENEM 2 GM in 0.9 % SODIUM CHLORIDE 100 ML IV SCH ×3 (05:11→21:19)
--- NOTE | 2021-05-29 07:27 | General Surgery Progress Note ---
SUBJECTIVE Subjective Patient information: Note initiated : 05/29/21 at 7:26 am Service Date, if different from initiated Date: [] Patient: Barrington Elizabeth 40 y/o M admitted on 05/26/21 for Abdominal Pain . Chief Complaint: [] Principal diagnosis: Intra-abdominal abscess, following appendectomy for necrotic appendicitis. Interval history: Patient states that he feels good today. He is afebrile. CT-guided percutaneous aspiration of the abscess cavity was carried out with drainage of pus on 1117. The cavity was irrigated a drain was left in place for serial irrigations. He has serosanguineous drainage that is hooked to a dependent drain. He denies nausea. He is passing flatus without difficulty. He continues to be afebrile. Constitutional Vitals: Vital Signs Temp Pulse Resp BP Pulse Ox 96.8 F L 71 16 115/73 93 05/29/21 07:13 05/29/21 07:13 05/29/21 07:13 05/29/21 07:13 05/29/21 07:13 Period Temp Pulse Resp BP Sys/Ramirez Pulse Ox Last 24 Hr 96.6 F-97.6 F 71-88 16-20 106-139/63-82 92-96 Intake and Output 05/28/21 05/29/21 05/29/21 21:59 05:59 13:59 Intake Total 2590 1510 100 Output Total 875 1499 Balance 1715 11 100 Weight 266 lb 6.4 oz Intake & Output: Intake & Output 05/28/21 05/29/21 05/29/21 21:59 05:59 13:59 Intake Total 2590 1510 100 Output Total 875 1499 Balance 1715 11 100 Weight 266 lb 6.4 oz Intake: IV 1100 1100 100 Sodium Chloride 0.9% 1,000 ml @ 1000 1000 125 mls/hr IV .Q8H [facility] Rx#: [id number] Merrem 2 gm In Sodium Chloride 100 100 100 0.9% 100 ml @ 100 mls/hr IV Q8H [facility] Rx#:[id number] Oral 1480 400 Input, Drain Irrigation Amount 10 10 Right Pigtail 10 10 Output: Drainage 40 15 Right Abdomen 15 15 Right Pigtail 25 Drainage 35 10 Right Pigtail 35 10 Void Amount 800 1474 Other: Meal Dinner Percent of Meal Consumed 100% Feeding Ability Independent Urine Appearance Clear Clear Urine Color Straw Bright Yellow Urine Odor Normal General appearance: cooperative and no acute distress GI/Abdominal GI/Abdominal exam: Present soft; Absent distended or guarding Additional comments: Both drains with serous fluid. A/P Narrative A/P Narrative: Patient is doing well. He is tolerating diet without difficulty. White count pending this morning. Patient will be continued on present therapy and antibiotics will be altered based on final sensitivity status. Time Spent With Patient Time: Total time spent is greater than 50% in coordination of care (as documented) at patient's floor/unit and/or counseling patient:
[2021-05-29] MEDS: PANTOPRAZOLE 40 MG TABLET PO SCH (07:30)
[2021-05-29] MEDS: DOCUSATE SODIUM 100 MG CAPSULE PO SCH ×2 (08:49→20:10)
[2021-05-29] MEDS: CYCLOBENZAPRINE 10 MG TABLET PO PRN (11:18)
[2021-05-29 12:59] LABS: Basophils # (Auto) 0.06 K/mcL (0.00-0.30); Basophils % (Auto) 0.6 % (0.0-2.0); Eosinophils # (Auto) 0.27 K/mcL (0.00-0.70); Eosinophils % (Auto) 2.7 % (0.0-7.0); Hemoglobin 11.1 g/dL (13.7-17.5); Lymphocytes # (Auto) 1.72 K/mcL (1.50-4.80); Lymphocytes % (Auto) 17.2 % (15.5-49.0); Mean Corpuscular HGB Conc 31.7 g/dL (31.0-36.0); Mean Platelet Volume 8.8 fL (7.4-10.4); Monocytes # (Auto) 1.02 K/mcL (0.10-0.90); Monocytes % (Auto) 10.2 % (1.0-12.0); Neutrophils % (Auto) 69.3 % (38.0-78.0); Platelet Count 579 K/mcL (140-440); RBC 3.89 M/mcL (4.63-6.08); Red Cell Distribution Width 12.6 % (11.5-14.5)
[2021-05-29] MEDS: SENNOSIDES 1 TABLET PO SCH (20:10)
[2021-05-30] MEDS: HYDROmorphone 1 MG/ML SYRINGE IV PRN ×3 (04:03→10:36)
[2021-05-30] MEDS: 0.9 % SODIUM CHLORIDE 10 ML SYRINGE IV SCH (04:35)
[2021-05-30] MEDS: MEROPENEM 2 GM in 0.9 % SODIUM CHLORIDE 100 ML IV SCH (05:19)
[2021-05-30] MEDS: 0.9 % SODIUM CHLORIDE 1,000 ML IV SCH (05:19)
[2021-05-30] MEDS: PANTOPRAZOLE 40 MG TABLET PO SCH (07:19)
--- NOTE | 2021-05-30 10:24 | General Surgery Progress Note ---
SUBJECTIVE Subjective Patient information: Note initiated : 05/30/21 at 10:19 am Service Date, if different from initiated Date: [] Patient: Barrington Elizabeth 40 y/o M admitted on 05/26/21 for Abdominal Pain . Chief Complaint: [] Doing well this am, passing some gas, tolerating diet reasonably well, some crampy pain remains but overall much better Principal diagnosis: Intra-abdominal abscess, following appendectomy for necrotic appendicitis. Constitutional Vitals: Vital Signs Temp Pulse Resp BP Pulse Ox 96.9 F L 72 20 110/70 94 05/30/21 07:33 05/30/21 07:33 05/30/21 07:33 05/30/21 07:33 05/30/21 07:33 Period Temp Pulse Resp BP Sys/Ramirez Pulse Ox Last 24 Hr 96.9 F-97.6 F 72-84 16-20 99-119/63-75 94-97 Intake and Output 05/29/21 05/30/21 05/30/21 21:59 05:59 13:59 Intake Total 1100 1610 100 Output Total 690 520 Balance 410 1090 100 Weight 263 lb 12.8 oz Intake & Output: Intake & Output 05/29/21 05/30/21 05/30/21 21:59 05:59 13:59 Intake Total 1100 1610 100 Output Total 690 520 Balance 410 1090 100 Weight 263 lb 12.8 oz Intake: IV 1100 1100 100 Sodium Chloride 0.9% 1,000 ml @ 1000 1000 125 mls/hr IV .Q8H [facility] Rx#: [id number] Merrem 2 gm In Sodium Chloride 100 100 100 0.9% 100 ml @ 100 mls/hr IV Q8H [facility] Rx#:[id number] Oral 500 Input, Drain Irrigation Amount 10 Right Abdomen 0 Right Pigtail 10 Output: Drainage 40 20 Right Abdomen 30 10 Right Pigtail 10 10 Void Amount 650 500 Other: Urine Appearance Clear Clear Urine Color Bright Yellow Bright Yellow General appearance: cooperative and no acute distress Head Head exam: Present atraumatic and normocephalic Respiratory Additional comments: no respiratory distress Cardiovascular Cardiovascular exam: Present RRR GI/Abdominal Additional comments: soft and non tender, non distended, drains appear serous to serosang, non enteri c and non purulent A/P Narrative A/P Narrative: Intra abdominal abscess post Lap Appendectomy Doing well at this time with normalization of WBC and improved clinically Continue IV ABs for now and check cultures as appropriate to narrow and possibly transition to oral ABs in next day or two Anticipate possible discharge home tomorrow Time Spent With Patient Time: Total time spent is greater than 50% in coordination of care (as documented) at patient's floor/unit and/or counseling patient:
[2021-05-30] MEDS ORDERED: oxyCODONE HCL 5 MG TABLET PO PRN (10:26)
[2021-05-30] MEDS: DOCUSATE SODIUM 100 MG CAPSULE PO SCH (10:36)
== END 2021-05-30 14:00 | disposition left against medical advice (07) | DRG 862 ==
LOC: ED 04:16 → MEDSUR 13:51
PROVIDERS: ADMIT Family Medicine Adult Medicine; ATTEND Family Medicine Adult Medicine

== ENCOUNTER 2021-06-18 08:26 | Inpatient (IN) ==
[~2021-06-18 08:26] MED LIST: PIPERACILLIN SODIUM/TAZOBACTAM 3.375 GM in DEXTROSE 5% IN WATER 50 ML IV SCH; metroNIDAZOLE 500 MG/100 ML BAG IV SCH
[2021-06-18] MEDS ORDERED: SUCCINYLCHOLINE 20 MG/ML ML IV ONE (12:05)
[2021-06-18] MEDS ORDERED: HYDROmorphone 1 MG/ML SYRINGE ONE (12:05)
[2021-06-18] MEDS ORDERED: LIDOCAINE HCL/PF 100 MG/5 ML SYRINGE IV ONE (12:05)
[2021-06-18] MEDS ORDERED: MAGNESIUM SULFATE 2 GM/50 ML BAG IV ONE (12:05)
[2021-06-18] MEDS ORDERED: MIDAZOLAM 5 MG/5 ML VIAL ONE (12:05)
[2021-06-18] MEDS ORDERED: KETAMINE 50 MG/ML Syringe (ANEST) IV ONE (12:05)
[2021-06-18] MEDS ORDERED: PROPOFOL 200 MG/20 ML VIAL IV ONE (12:05)
[2021-06-18] MEDS ORDERED: ONDANSETRON 4 MG/2 ML VIAL ONE (12:05)
[2021-06-18] MEDS ORDERED: DEXAMETHASONE 10 MG/ML VIAL ONE (12:05)
[2021-06-18] MEDS ORDERED: fentaNYL 250 MCG/5 ML VIAL IV ONE (12:05)
[2021-06-18] MEDS ORDERED: GLYCOPYRROLATE 0.2 MG/ML VIAL IV ONE (12:05)
[2021-06-18] MEDS ORDERED: SUGAMMADEX SODIUM 200 MG/2 ML VIAL IV ONE (12:05)
[2021-06-18] MEDS ORDERED: ROCURONIUM 10 MG/ML ML IV ONE (12:05)
[2021-06-18] MEDS ORDERED: ACETAMINOPHEN 1,000 MG/100 ML BAG IV ONE ×2 (14:02→14:04)
[2021-06-18] MEDS ORDERED: fentaNYL 100 MCG/2 ML VIAL IV PRN (14:02)
[2021-06-18] MEDS ORDERED: FLUMAZENIL 0.1 MG/ML ML IV PRN (14:02)
[2021-06-18] MEDS ORDERED: NALOXONE HCL 0.4 MG/ML VIAL IV PRN (14:02)
[2021-06-18] MEDS ORDERED: IPRATROPIUM/ALBUTEROL 3 ML AMPUL.NEB NEB PRN (14:02)
[2021-06-18] MEDS ORDERED: LABETALOL 5 MG/ML ML IV PRN (14:02)
[2021-06-18] MEDS ORDERED: MEPERIDINE 25 MG/ML VIAL IV PRN (14:02)
[2021-06-18] MEDS ORDERED: METOPROLOL TARTRATE 5 MG/5 ML VIAL IV PRN (14:02)
[2021-06-18] MEDS ORDERED: BENZOCAINE/MENTHOL 1 LOZENGE PO PRN (14:02)
[2021-06-18] MEDS ORDERED: METHOCARBAMOL 1,000 MG/10 ML VIAL IV PRN (14:02)
[2021-06-18] MEDS ORDERED: KETOROLAC 30 MG/ML VIAL IV PRN (14:02)
[2021-06-18] MEDS ORDERED: LACTATED RINGERS 250 ML IV PRN (14:02)
[2021-06-18] MEDS ORDERED: HYDROmorphone 0.5 MG/0.5 ML SYRINGE IV PRN (14:02)
[2021-06-18] MEDS ORDERED: ONDANSETRON 4 MG/2 ML VIAL IV PRN ×2 (14:02→14:05)
[2021-06-18] MEDS ORDERED: PROMETHAZINE 25 MG/ML VIAL IV PRN (14:05)
[2021-06-18] MEDS ORDERED: LACTATED RINGERS 1,000 ML IV SCH (14:15)
--- NOTE | 2021-06-18 14:15 | Brief Operative Note ---
Brief Operative Note Date of procedure: 06/18/21 Pre-op diagnosis: post procedural cecal perforation Post-op diagnosis: same Procedure: laparoscopy with closure of cecal perforation and removal of drainage catheter Grafts/Implants: No (#10 sam drain x 1) Anesthesia: GETA Findings: percutaneous drainage catheter into cecum Complications: none Surgeon: Reg Zaragoza Estimated blood loss (cc): 10 Specimens Removed/Pathology: none sent Condition: stable Disposition: PACU
[2021-06-18] MEDS: LACTATED RINGERS 1,000 ML IV SCH (15:00)
[2021-06-18] MEDS: oxyCODONE HCL 5 MG TABLET PO PRN (15:56)
[2021-06-18] MEDS: HYDROmorphone 1 MG/ML SYRINGE IV PRN ×2 (18:04→22:53)
[2021-06-18] MEDS: PIPERACILLIN SODIUM/TAZOBACTAM 3.375 GM in DEXTROSE 5% IN WATER 50 ML IV SCH (18:14)
[2021-06-18] MEDS: 0.9 % SODIUM CHLORIDE 10 ML SYRINGE IV SCH (20:52)
[2021-06-18] MEDS ORDERED: [UNRECOGNIZED DRUG - OTHER] PO SCH (21:00)
[2021-06-19] MEDS: oxyCODONE HCL 5 MG TABLET PO PRN ×6 (01:14→23:50)
[2021-06-19] MEDS: PIPERACILLIN SODIUM/TAZOBACTAM 3.375 GM in DEXTROSE 5% IN WATER 50 ML IV SCH ×5 (01:17→23:38)
[2021-06-19] MEDS: LACTATED RINGERS 1,000 ML IV SCH ×2 (04:03→17:37)
[2021-06-19] MEDS: 0.9 % SODIUM CHLORIDE 10 ML SYRINGE IV SCH ×3 (05:32→23:38)
[2021-06-19 06:58] LABS: Basophils # (Auto) 0.03 K/mcL (0.00-0.30); Basophils % (Auto) 0.2 % (0.0-2.0); Eosinophils # (Auto) 0.01 K/mcL (0.00-0.70); Eosinophils % (Auto) 0.1 % (0.0-7.0); Hematocrit 37.6 % (40.1-51.0); Lymphocytes # (Auto) 1.72 K/mcL (1.50-4.80); Lymphocytes % (Auto) 9.6 % (15.5-49.0); Mean Cell Volume 88.7 fL (80.0-100.0); Mean Corpuscular HGB Conc 31.9 g/dL (31.0-36.0); Monocytes # (Auto) 0.86 K/mcL (0.10-0.90); Monocytes % (Auto) 4.8 % (1.0-12.0); Neutrophils % (Auto) 85.3 % (38.0-78.0); Platelet Count 269 K/mcL (140-440); RBC 4.24 M/mcL (4.63-6.08); Red Cell Distribution Width 12.8 % (11.5-14.5)
[2021-06-19] MEDS: PANTOPRAZOLE 40 MG TABLET PO SCH (07:33)
[2021-06-19 07:42] LABS: ALT/SGPT 17 U/L (<40); AST/SGOT 17 U/L (<40); Albumin 3.4 gm/dL (3.2-5.2); Albumin/Globulin Ratio 1.4 (1.0-2.3); Alkaline Phosphatase 83 U/L (39-117); Bilirubin,Direct < 0.2 mg/dL (0-0.3); Bilirubin,Total 0.2 mg/dL (0.1-1.0); Blood Urea Nitrogen 7 mg/dL (6-20); Calcium 8.7 mg/dL (8.6-10.4); Carbon Dioxide 25 mmol/L (22-30); Chloride 100 mmol/L (96-108); Globulin 2.4 gm/dL (2.2-3.7); Glomerular Filtration Rate 126; Glucose 167 mg/dL (70-105); Lactate Dehydrogenase 143 U/L (135-225); Phosphorous 3.8 mg/dL (2.5-4.5); Triglycerides 100 mg/dL (<150)
--- NOTE | 2021-06-19 13:25 | General Surgery Progress Note ---
SUBJECTIVE Subjective Patient information: Note initiated : 06/19/21 at 1:21 pm Service Date, if different from initiated Date: [] Patient: Barrington Elizabeth 40 y/o M admitted on 06/18/21 for Diagnostic Laparoscopy with Closure of Cecal. 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 He is afebrile he has some tenderness in the old percutaneous tube site but minimal discomfort in the area of the operative port sites. He is afebrile but his white count is 18,000. Drainage from his JUDITH is serosanguineous Constitutional Vitals: Vital Signs Temp Pulse Resp BP Pulse Ox 97.4 F 78 17 120/70 96 06/19/21 12:00 06/19/21 12:00 06/19/21 12:00 06/19/21 12:00 06/19/21 12:00 Period Temp Pulse Resp BP Sys/Ramirez Pulse Ox Last 24 Hr 97.4 F-99 F 53-78 9-19 91-145/57-91 87-100 Intake and Output 06/18/21 06/19/21 06/19/21 21:59 05:59 13:59 Intake Total 150 1579 50 Output Total 15 430 10 Balance 135 1149 40 Weight 252 lb 14.4 oz Intake & Output: Intake & Output 06/18/21 06/19/21 06/19/21 21:59 05:59 13:59 Intake Total 150 1579 50 Output Total 15 430 10 Balance 135 1149 40 Weight 252 lb 14.4 oz Intake: IV 150 1079 50 Lactated Ringers 1,000 ml @ 75 979 mls/hr IV .[id number] [facility] Rx#: [id number] Zosyn 3.375 gm In Dextrose 5% 50 100 50 in Water 50 ml @ 100 mls/hr IV Q6H [facility] Rx#:[id number] Oral 500 Output: Drainage 15 30 10 Left JUDITH Drain 15 10 Right Abdomen 30 Void Amount 400 Other: Meal Breakfast Percent of Meal Consumed 100% Urine Appearance Clear Clear Urine Color Bright Yellow Light Yvonne Urine Odor Normal # Bowel Movements 0 ENT ENT exam: Present mucous membranes moist, normal exam and normal oropharynx Neck Neck exam: Present full ROM and normal inspection Respiratory Respiratory exam: Present normal respiratory exam and CTAB; Absent wheezes Cardiovascular Cardiovascular exam: Present normal rate and rhythm, RRR, +S1 and +S2; Absent JVD GI/Abdominal GI/Abdominal exam: Present normal bowel sounds and tenderness (Mild tenderness around port sites); Absent distended Extremities Exam Extremities exam: Present full ROM, normal inspection and neurovascular intact Neurological Exam Neurological exam: Present alert and oriented X3; Absent motor sensory deficit Psychiatric Psychiatric exam: Present normal affect and normal mood A/P Assessment and plan (1) Fecal fistula: Status: Acute (2) Postoperative intra-abdominal abscess: Status: Acute (3) Acute appendicitis with localized peritonitis and gangrene, without perforation: Status: Acute Narrative A/P Narrative: Patient is stable. The plan is to continue on IV antibiotics until Monday. Will recheck labs in the morning Time Spent With Patient Time: Total time spent is greater than 50% in coordination of care (as documented) at patient's floor/unit and/or counseling patient:
[2021-06-20 01:49] LABS: Amphetamine Screen,Urine Suspect positive; Barbiturate Screen,Urine None detected; Benzodiazepines Screen,Urine None detected; Cannabinoid Screen,Urine None detected; Cocaine Screen,Urine None detected; Opiate Screen,Urine None detected; Oxycodone, Urine Screen None detected; Phencyclidine Screen,Urine None detected
[2021-06-20] MEDS: PIPERACILLIN SODIUM/TAZOBACTAM 3.375 GM in DEXTROSE 5% IN WATER 50 ML IV SCH ×4 (05:06→23:40)
[2021-06-20] MEDS: 0.9 % SODIUM CHLORIDE 10 ML SYRINGE IV SCH ×3 (05:06→23:10)
[2021-06-20 06:21] LABS: Basophils # (Auto) 0.04 K/mcL (0.00-0.30); Basophils % (Auto) 0.4 % (0.0-2.0); Eosinophils # (Auto) 0.19 K/mcL (0.00-0.70); Eosinophils % (Auto) 2.1 % (0.0-7.0); Hematocrit 33.9 % (40.1-51.0); Hemoglobin 10.8 g/dL (13.7-17.5); Lymphocytes # (Auto) 3.27 K/mcL (1.50-4.80); Lymphocytes % (Auto) 36.1 % (15.5-49.0); Mean Cell Volume 88.7 fL (80.0-100.0); Mean Corpuscular HGB Conc 31.9 g/dL (31.0-36.0); Mean Platelet Volume 9.1 fL (7.4-10.4); Monocytes # (Auto) 0.84 K/mcL (0.10-0.90); Monocytes % (Auto) 9.3 % (1.0-12.0); Neutrophils % (Auto) 52.1 % (38.0-78.0); Platelet Count 244 K/mcL (140-440); RBC 3.82 M/mcL (4.63-6.08); Red Cell Distribution Width 13.2 % (11.5-14.5); WBC 9.1 K/mcL (4.5-11.0)
[2021-06-20] MEDS: oxyCODONE HCL 5 MG TABLET PO PRN (06:36)
[2021-06-20] MEDS: PANTOPRAZOLE 40 MG TABLET PO SCH (06:36)
[2021-06-20] MEDS: LACTATED RINGERS 1,000 ML IV SCH ×2 (06:36→09:29)
[2021-06-20 07:29] LABS: ALT/SGPT 15 U/L (<40); AST/SGOT 13 U/L (<40); Albumin 3.3 gm/dL (3.2-5.2); Albumin/Globulin Ratio 1.6 (1.0-2.3); Alkaline Phosphatase 68 U/L (39-117); Bilirubin,Direct < 0.2 mg/dL (0-0.3); Bilirubin,Total < 0.2 mg/dL (0.1-1.0); Blood Urea Nitrogen 5 mg/dL (6-20); Calcium 8.8 mg/dL (8.6-10.4); Carbon Dioxide 26 mmol/L (22-30); Chloride 105 mmol/L (96-108); Globulin 2.1 gm/dL (2.2-3.7); Glomerular Filtration Rate 118; Glucose 99 mg/dL (70-105); Lactate Dehydrogenase 119 U/L (135-225); Phosphorous 3.9 mg/dL (2.5-4.5); Triglycerides 112 mg/dL (<150); Uric Acid 3.7 mg/dL (2.5-8.0)
--- NOTE | 2021-06-20 09:16 | General Surgery Progress Note ---
SUBJECTIVE Subjective Patient information: Note initiated : 06/20/21 at 9:11 am Service Date, if different from initiated Date: [] Patient: Barrington Elizabeth 40 y/o M admitted on 06/18/21 for Diagnostic Laparoscopy with Closure of Cecal. 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 Constitutional Vitals: Vital Signs Temp Pulse Resp BP Pulse Ox 98.1 F 60 20 116/68 94 06/20/21 07:09 06/20/21 04:00 06/20/21 07:09 06/20/21 07:09 06/20/21 07:09 Period Temp Pulse Resp BP Sys/Ramirez Pulse Ox Last 24 Hr 97.1 F-98.1 F 60-78 16-20 113-124/68-77 92-96 Intake and Output 06/19/21 06/20/21 06/20/21 21:59 05:59 13:59 Intake Total 1050 300 974 Output Total 400 630 Balance 650 300 344 Weight 255 lb 8 oz Intake & Output: Intake & Output 06/19/21 06/20/21 06/20/21 21:59 05:59 13:59 Intake Total 1050 300 974 Output Total 400 630 Balance 650 300 344 Weight 255 lb 8 oz Intake: IV 1050 100 974 Lactated Ringers 1,000 ml @ 75 1000 974 mls/hr IV .[id number] [facility] Rx#: [id number] Zosyn 3.375 gm In Dextrose 5% 50 100 in Water 50 ml @ 100 mls/hr IV Q6H [facility] Rx#:[id number] Oral 200 Output: Drainage 30 Left JUDITH Drain 30 Void Amount 400 600 Other: Meal Breakfast Percent of Meal Consumed 100% Urine Appearance Clear Clear Urine Color Bright Yellow General appearance: cooperative and no acute distress Exam: looks well Respiratory Additional comments: no respiratory distress Cardiovascular Cardiovascular exam: Present normal rate and rhythm and RRR GI/Abdominal Additional comments: belly is soft and minimally tender, drain is serosang (non enteric and non purulent) and wounds all intact without drainage A/P Narrative A/P Narrative: POD #2 Closure Cecal Perforation with drain removal Doing Well - afebrile with normalization of WBC Advance diet Increase activity Continue drain and IV ABs for now Time Spent With Patient Time: Total time spent is greater than 50% in coordination of care (as documented) at patient's floor/unit and/or counseling patient:
[2021-06-21] MEDS: oxyCODONE HCL 5 MG TABLET PO PRN ×3 (00:26→11:46)
[2021-06-21] MEDS: LACTATED RINGERS 1,000 ML IV SCH ×2 (00:28→07:00)
[2021-06-21] MEDS: PIPERACILLIN SODIUM/TAZOBACTAM 3.375 GM in DEXTROSE 5% IN WATER 50 ML IV SCH ×2 (05:14→11:46)
[2021-06-21] MEDS: 0.9 % SODIUM CHLORIDE 10 ML SYRINGE IV SCH (06:01)
[2021-06-21 06:57] LABS: Hemoglobin 11.8 g/dL (13.7-17.5); Mean Corpuscular HGB Conc 31.1 g/dL (31.0-36.0); Mean Platelet Volume 9.1 fL (7.4-10.4); Platelet Count 237 K/mcL (140-440); RBC 4.13 M/mcL (4.63-6.08); Red Cell Distribution Width 13.2 % (11.5-14.5); WBC 8.2 K/mcL (4.5-11.0)
[2021-06-21 07:34] LABS: Blood Urea Nitrogen 9 mg/dL (6-20); Carbon Dioxide 27 mmol/L (22-30); Chloride 101 mmol/L (96-108); Glomerular Filtration Rate 112; Glucose 92 mg/dL (70-105)
[2021-06-21] MEDS: PANTOPRAZOLE 40 MG TABLET PO SCH (07:43)
--- NOTE | 2021-06-21 12:25 | Discharge Summary ---
Discharge Provider Provider Patient information: Note initiated : 06/21/21 at 12:22 pm Service Date, if different from initiated Date: [] Patient: Barrington Elizabeth 40 y/o M admitted on 06/18/21 for Diagnostic Laparoscopy with Closure of Cecal. Chief Complaint: [] Date of admission: 06/18/21 08:26 Discharge date: 06/21/21 Primary care physician: PCP [place] Admitting clinician: Reg Zaragoza Attending physician on admission: Reg Zaragoza Attending physician on discharge: Reg Zaragoza Discharging clinician: Reg Zaragoza COURSE Hospital Course Hospital course: 40-year-old male with history of acute gangrenous appendicitis. He developed a postprocedural abscess which was drained percutaneously. During the follow-up as an outpatient he was noted to have feculent drainage in his drainage canister. Follow-up CT showed that the drainage catheter was in the cecum. Patient was treated with antibiotics and was readmitted for closure of the fistula to the cecum and removal of the drainage catheter. This was done successfully. He has done well and his present serosanguineous white is down has been afebrile. Patient is tolerating a regular diet. He is discharged on A ugmentin and will have follow-up in the office in 3 weeks. Discharge diagnosis: Postprocedural cecal fistula Secondary discharge diagnosis: Post appendectomy procedural abscess Reason for admission: Closure of cecal fistula and removal drainage catheter Procedures: Laparoscopic closure of cecal fistula and removal of drainage cath Pertinent studies/significant findings: None Time Spent with Patient Time attestation: Total time spent providing and/or coordinating discharge services: Physical Examination Vital Signs Vital signs: Temp Pulse Resp BP Pulse Ox 97.4 F 73 18 125/74 96 06/21/21 11:27 06/21/21 11:27 06/21/21 11:27 06/21/21 11:27 06/21/21 11:27 General physical appearance General physical exam: well developed, well nourished, no distress and no pain Eyes Eye exam: PERRL and normal ocular movement ENT ENT exam: normal mucosa and no congestion Head Head exam IM: Present atraumatic, normal inspection and normocephalic Neck Neck exam: no masses, no bruits, trachea midline, no lymphadenopathy and no venous distension Cardiovascular Cardiovascular exam IM: Present normal rate and rhythm, RRR, +S1 and +S2; Absent gallop or JVD Respiratory Respiratory exam: normal expansion, normal respiratory effort and clear to ausc ultation Abdomen Abdomen: Present soft, tender (Mild tenderness around port sites), bowel sounds (Normal bowel sounds) and surgical scars (Port sites are healing uneventfully) Integumentary Integumentary: Present no rash, no growths and no abnormal pigmentation Neurologic Neurologic: Present normal coordination and normal sensation Musculoskeletal Musculoskeletal: Present normal gait and normal posture Psychiatric Psychiatric: Present oriented to time, oriented to person, oriented to place, speech is normal and memory intact Discharge Plan Patient/Caregiver Discharge Instructions Activity: increase activity as tolerated Diet: Regular Diet Prescriptions: New amoxicillin-pot clavulanate [Augmentin] 875-125 mg tablet 1 tab PO BID Qty: 30 0RF No Action amoxicillin-pot clavulanate [Augmentin] 875-125 mg tablet 1 tab PO BID 10 Days Qty: 30 1RF Follow Up Plan Follow up with: Reg Zaragoza MD [Physician] - ( follow-up in the office in 3 weeks) Patient Disposition: Home, Self-Care Assessment: Patient has responded very well to treatment Plan of Treatment: New prescription is to be started after the old prescription is completed and continued until patient is seen in the office Prognosis: Good Rehab Potential: Good I certify that the patient requires SNF services: No Overall status at discharge: patient is progressing back to baseline Discharge Orders: Discharge Order (Routine); Ordered 06/21/21 Ordered By: Reg Zaragoza Pending Pending Pending: Resuscitation Status Resuscitate (Full Code) Diet Regular Diet Start MonJun 20 921 Hydromorphone HCl (Hydromorphone 1 Mg/Ml Syringe) 1 mg IV Q2HP PRN; Protocol PRN Reason: Per Pain Protocol Last Admin: 06/18/21 22:53 Dose: 1 mg Documented by: Admin: 06/18/21 18:04 Dose: 1 mg Documented by: TERENCE Piperacillin Sod/Tazobactam (Sod 3.375 gm/ Dextrose) 50 mls @ 100 mls/hr IV Q6H [facility]; Protocol Last Admin: 06/21/21 11:46 Dose: 100 mls/hr Documented by: Infusion: 06/21/21 06:02 Dose: 0 mls/hr Documented by: Admin: 06/21/21 05:14 Dose: 100 mls/hr Documented by: Infusion: 06/21/21 00:10 Dose: 0 mls/hr Documented by: Admin: 06/20/21 23:40 Dose: 100 mls/hr Documented by: Infusion: 06/20/21 17:48 Dose: 0 mls/hr Documented by: Admin: 06/20/21 17:18 Dose: 100 mls/hr Documented by: Infusion: 06/20/21 12:29 Dose: 0 mls/hr Documented by: Admin: 06/20/21 11:59 Dose: 100 mls/hr Documented by: Infusion: 06/20/21 05:36 Dose: 0 mls/hr Documented by: Admin: 06/20/21 05:06 Dose: 100 mls/hr Documented by: Infusion: 06/20/21 00:08 Dose: 0 mls/hr Documented by: Admin: 06/19/21 23:38 Dose: 100 mls/hr Documented by: Infusion: 06/19/21 18:07 Dose: 0 mls/hr Documented by: Admin: 06/19/21 17:37 Dose: 100 mls/hr Documented by: Infusion: 06/19/21 12:38 Dose: 0 mls/hr Documented by: Admin: 06/19/21 11:52 Dose: 100 mls/hr Documented by: Infusion: 06/19/21 05:32 Dose: 0 mls/hr Documented by: Admin: 06/19/21 04:58 Dose: 100 mls/hr Documented by: Infusion: 06/19/21 01:47 Dose: 0 mls/hr Documented by: Admin: 06/19/21 01:17 Dose: 100 mls/hr Documented by: Infusion: 06/18/21 18:44 Dose: 0 mls/hr Documented by: Admin: 06/18/21 18:14 Dose: 100 mls/hr Documented by: TERENCE Lactated Ringer's (Lactated Ringers) 1,000 mls @ 50 mls/hr IV .Q20H [facility] Last Admin: 06/21/21 07:00 Dose: Not Given Documented by: Admin: 06/21/21 00:28 Dose: 50 mls/hr Documented by: Admin: 06/20/21 09:29 Dose: Not Given Documented by: TERENCE Oxycodone HCl (Oxycodone Hcl 5 Mg Tablet) 10 mg PO Q4HP PRN; Protocol PRN Reason: Per Pain Protocol Last Admin: 06/21/21 11:46 Dose: 10 mg Documented by: Admin: 06/21/21 05:14 Dose: 10 mg Documented by: Admin: 06/21/21 00:26 Dose: 10 mg Documented by: Admin: 06/20/21 06:36 Dose: 10 mg Documented by: Admin: 06/19/21 23:50 Dose: 10 mg Documented by: Admin: 06/19/21 17:43 Dose: 10 mg Documented by: Admin: 06/19/21 13:40 Dose: 10 mg Documented by: Admin: 06/19/21 09:04 Dose: 10 mg Documented by: Admin: 06/19/21 04:53 Dose: 10 mg Documented by: Admin: 06/18/21 15:56 Dose: 10 mg Documented by: TERENCE Pantoprazole Sodium (Pantoprazole 40 Mg Tablet) 40 mg PO QAMAC [facility] Last Admin: 06/21/21 07:43 Dose: 40 mg Documented by: Admin: 06/20/21 06:36 Dose: 40 mg Documented by: Admin: 06/19/21 07:33 Dose: 40 mg Documented by: TERENCE Sodium Chloride (0.9 % Sodium Chloride 10 Ml Syringe) 10 ml IV Q8 [facility] Admin: 06/21/21 06:01 Dose: Not Given Documented by: Admin: 06/20/21 23:10 Dose: Not Given Documented by: Admin: 06/20/21 12:49 Dose: 10 ml Documented by: Admin: 06/20/21 05:06 Dose: 10 ml Documented by: Admin: 06/19/21 23:38 Dose: 10 ml Documented by: Admin: 06/19/21 13:04 Dose: 10 ml Documented by: Admin: 06/19/21 05:32 Dose: 10 ml Documented by: Admin: 06/18/21 20:52 Dose: 10 ml Documented by: ALYCIA Shift Summary 06/21/21 02:34 Shift Summary by Kurt Lovelace Addendum entered by Kurt Lovelace 06/21/21 05:18: ABD pain 12/17 @ 0515 - PO Roxicodone 10mg given. No N/V. Original Note: Pt has rested on & off most of this shift. ABD pain has been moderate, pt denied need for pain med until 0025 - PO pain med given @ that time. No N/V. No BM - is passing flatus. Voiding QS into toilet. Pt up AMB (I) in Rm & out in plummer several times this shift - gait stable w/o device. He is tolerating Reg diet. ABD lap sites x2 & Mid lower ABD drain site dressings - C,D,I. Old JUDITH site RLQ ABD - dressing - C,D,I. LR infusing to his LT F/A @ 50ml/hr. VS - WNL on R.A.. He is A&O x4, calm, pleasant, & cooperative. Initialized on 06/21/21 02:34 - END OF NOTE
--- NOTE | 2021-06-25 16:27 | Operative Note ---
DATE OF OPERATION: 06/18/2021 PREOPERATIVE DIAGNOSIS: Post-procedural cecal perforation. POSTOPERATIVE DIAGNOSIS: Post-procedural cecal perforation. PROCEDURE: Diagnostic laparoscopy with closure of the cecal perforation and removal of drainage catheter. SURGEON: Reg Zaragoza M.D. INDICATIONS: The patient is status post appendectomy with later percutaneous drainage of an appendiceal abscess. Drainage catheter started draining feculent material about 10 days after its insertion. Followup CT showed that the drainage catheter was positioned in the cecum. The patient was followed with antibiotics until it was felt that the fistula would be well developed with a definite tract. The purpose of the procedure is to remove the catheter under direct vision and close the fistulous opening in the cecum to prevent contamination. DESCRIPTION OF PROCEDURE: Under general anesthesia, the patient's abdomen was prepped and draped in a sterile field. Timeout procedure was carried out as per protocol. There were extensive adhesions in the pelvis in the right gutter. Some of these adhesions were taken down with electrocautery, taking care not to cause any visceral injury. The tract with the drainage catheter was identified exiting from the cecum and going through the peritoneum of the abdominal wall. Using gentle dissection, the pseudocapsule around the catheter was incised until the catheter was free. The base of the cecum was then grasped and the catheter was then gently removed under direct vision. There was no fecal contamination. The fistulous tract was then grasped with a grasping forceps. The Endo MASOUD stapler was then placed in the wall of the cecum at the base of this tract as it entered the cecum. The stapler was fired and the entire tract was removed intact. It was grasped and removed in an EndoCatch device. Irrigation was carried out. Inspection of the area of the previous abscess revealed some induration, but no fluctuance was noted. There was no major inflammatory process in the peritoneal cavity. The right colon and the pelvis were irrigated under direct vision. A #10 Rhett drain was placed and brought out through the suprapubic port site. The drain was placed directly over the catheter puncture site. Under direct vision, the gas was released from the abdomen to assure that the catheter remained in its position. The catheter was then sutured to the skin using 2-0 nylon. The midline supraumbilical incision was closed with 2-0 Monocryl on the fascia and david on the skin. The left lower quadrant incision was closed with david on the skin. Tegaderm dressings were placed. The patient tolerated the procedure well. He was awakened and transferred to the postanesthetic care unit in satisfactory condition. LCS:alana Job ID: [id number] Doc ID: [id number] Reg Zaragoza M.D.
== END 2021-06-21 13:35 | disposition home or self-care (01) | DRG 908 ==
LOC: MEDSUR 08:26
PROVIDERS: ADMIT Family Medicine Adult Medicine; ATTEND Family Medicine Adult Medicine